=== PATIENT | female | born 1985 | race Caucasian/White ===

== ENCOUNTER → 2018-02-24 | Outpatient (CLI) | payer BC ==
--- NOTE | 2018-02-24 11:29 | MM ---
Reason for exam: screening (asymptomatic). Baseline mammogram. History: Family history of breast cancer in maternal aunt at age 50. Physical Findings: A clinical breast exam by your physician is recommended on an annual basis and results should be correlated with mammographic findings. MG Screening Mammo w CAD Bilateral CC and MLO view(s) were taken. There are scattered fibroglandular densities. There is no discrete abnormality. These results were verbally communicated with the patient and result sheet given to the patient on 02/24/18. ASSESSMENT: Negative, BI-RAD 1 RECOMMENDATION: Routine screening mammogram of both breasts at age 38.
== END | disposition home or self-care (01) ==
LOC: RADMAMWWP 09:34
PROVIDERS: ATTEND Obstetrics & Gynecology
DX: Z12.31 Encounter for screening mammogram for malignant neoplasm of breast (principal)
CPT/HCPCS: 77067

== ENCOUNTER 2019-07-18 19:46 | Observation (INO) | payer BC ==
[2019-07-18] MEDS ORDERED: SODIUM CHLORIDE 0.9% 1,000 ML IV STA (20:05)
[2019-07-18] MEDS ORDERED: SODIUM CHLORIDE 0.9% 500 ML 500 ML IV ONE (20:29)
--- NOTE | 2019-07-18 20:32 | ED ---
Fever HPI - General Source: patient Mode of arrival: ambulatory Limitations: no limitations <Megan Ryan - Last Filed: 07/19/19 01:23> <Dinh Townsend - Last Filed: 07/19/19 06:04> - General Chief Complaint: Fever Stated Complaint: post op-fever Time Seen by Provider: 07/18/19 19:55 - History of Present Illness Initial Comments: 34-year-old female patient who recently underwent rectal and ovarian surgery at the [facility] on 07/08/2019 presents to the emergency department today for evaluation of abdominal pain and fever. Patient states the fever was as high as 102.5F at home. Patient states she is having left pelvic pain. She denies any abnormal discharge from her vagina or rectum. States that she did have a normal bowel movement yesterday but no bowel movement today. Denies nausea or vomiting. Patient denies any recent rash, shortness breath, chest pain, back pain, numbness, tingling, dizziness, weakness, hematuria, dysuria, urinary urgency, urinary frequency, headache, visual changes, or any other complaints. (Megan Ryan) - Related Data Allergies Allergy/AdvReac Type Severity Reaction Status Date / Time No Known Allergies Allergy Verified 07/18/19 19:51 Review of Systems ROS Other: All systems not noted in ROS Statement are negative. <Megan Ryan - Last Filed: 07/19/19 01:23> ROS Other: All systems not noted in ROS Statement are negative. <Dinh Townsend - Last Filed: 07/19/19 06:04> ROS Statement: Those systems with pertinent positive or pertinent negative responses have been documented in the HPI. Past Medical History Past Medical History: Coronary Artery Disease (CAD) Additional Past Medical History / Comment(s): endometeriosis History of Any Multi-Drug Resistant Organisms: None Reported Past Surgical History: Hysterectomy Additional Past Surgical History / Comment(s): rectal prolapse surgery, Past Psychological History: No Psychological Hx Reported Smoking Status: Never smoker Past Alcohol Use History: Occasional Past Drug Use History: None Reported <Megan Ryan - Last Filed: 07/19/19 01:23> General Exam Limitations: no limitations General appearance: alert, in no apparent distress, other (This is a well-de veloped, well-nourished adult female patient in no acute distress. Vital signs upon presentation are temperature 99.7F, pulse 140, respirations 20, blood pressure 110/70, pulse ox 99% on room air.) Eye exam: Present: normal appearance, PERRL, EOMI. Absent: scleral icterus, conjunctival injection, periorbital swelling ENT exam: Present: normal exam, normal oropharynx, mucous membranes moist Respiratory exam: Present: normal lung sounds bilaterally. Absent: respiratory distress, wheezes, rales, rhonchi, stridor Cardiovascular Exam: Present: regular rate, normal rhythm, normal heart sounds. Absent: systolic murmur, diastolic murmur, rubs, gallop, clicks GI/Abdominal exam: Present: soft, tenderness (Left lower quadrant tenderness), normal bowel sounds, other (There is a horizontal incision over the pelvis which is well approximated, with no erythema or drainage.). Absent: distended, guarding, rebound, rigid Back exam: Present: normal inspection. Absent: CVA tenderness (R), CVA tenderness (L) Neurological exam: Present: alert, oriented X3, CN II-XII intact Psychiatric exam: Present: normal affect, normal mood Skin exam: Present: warm, dry, intact, normal color. Absent: rash <Megan Ryan - Last Filed: 07/19/19 01:23> Course <Dinh Townsend - Last Filed: 07/19/19 06:04> Vital Signs 07/18/19 07/18/19 07/18/19 19:47 20:42 22:39 Temperature 99.7 F H 99.9 F H Pulse Rate 140 H 105 H 107 H Respiratory 20 18 Rate Blood Pressure 110/70 142/82 O2 Sat by Pulse 99 100 99 Oximetry 07/19/19 07/19/19 07/19/19 00:24 01:00 02:36 Temperature 101.4 F H 101.5 F H 100.7 F H Pulse Rate 115 H 118 H 104 H Respiratory 18 16 19 Rate Blood Pressure 134/84 137/82 122/73 O2 Sat by Pulse 98 98 98 Oximetry - Reevaluation(s) Reevaluation #1: 07/19/19 06:03 After the patient's care had been discussed with our surgeon and the patient had admission orders written, pending the transfer to [facility], the patient's surgeon did finally return a call. She stated that the transfer was going to be held pending evaluation by our surgeon here, and if it was felt by him that the patient was requiring a drainage they would then process the transfer. (Dinh Townsend) Medical Decision Making - Lab Data Result diagrams: 07/18/19 20:33 07/18/19 20:33 - Radiology Data Radiology results: report reviewed, image reviewed <Megan Ryan - Last Filed: 07/19/19 01:23> - Lab Data Result diagrams: 07/18/19 20:33 07/18/19 20:33 <Dinh Townsend - Last Filed: 07/19/19 06:04> - Medical Decision Making 34 year-old female patient presents to emergency department today for evaluation of fever and left lower quadrant abdominal pain. Patient underwent surgical procedure at [facility] on 07/08/2019 for a repair of rectal prolapse as well as removal of right ovarian cyst, bilateral salpingectomy, and release of adhesions with Dr. Mcdonald (Colorectal Surgery) and Dr. Velarde (TRAFFIC II MANAGER). Patient developed fever early this morning and has been having pain to the left pelvic region for the last couple of days. Temperature has been as high as 102.5F. Labs reviewed and did reveal elevated white blood cell count at 23.5. Patient also had transaminitis. No evidence for significant urinary tract infection. Lactic acid negative. CT the abdomen and pelvis was obtained and did show abdominal wall thickening and fluid collection which could be hematoma versus seroma versus abscess. Patient was started on IV antibiotics. Transfer was initiated to [facility] however they do not have beds available at this time. Patient will be admitted for IV antibiotics, evaluation by a general surgery Dr. Grace and possible transfer to [facility] per his recommendation. I did discuss results, findings, and plan with the patient and her family. They are agreeable. (Megan Ryan) I saw this patient in conjunction with the physician assistant food service director. I performed independent history and physical exam. Agree with case management. (Dinh Townsend) - Lab Data Lab Results 07/18/19 07/18/19 07/18/19 Range/Units 20:33 20:33 20:33 WBC 23.7 H (3.8-10.6) k/uL RBC 3.76 L (3.80-5.40) m/uL Hgb 10.9 L (11.4-16.0) gm/dL Hct 33.8 L (34.0-46.0) % MCV 89.9 (80.0-100.0) fL MCH 29.0 (25.0-35.0) pg MCHC 32.2 (31.0-37.0) g/dL RDW 13.1 (11.5-15.5) % Plt Count 829 H (150-450) k/uL Neutrophils % 86 % Lymphocytes % 8 % Monocytes % 4 % Eosinophils % 1 % Basophils % 1 % Neutrophils # 20.3 H (1.3-7.7) k/uL Lymphocytes # 1.9 (1.0-4.8) k/uL Monocytes # 0.9 (0-1.0) k/uL Eosinophils # 0.2 (0-0.7) k/uL Basophils # 0.2 (0-0.2) k/uL Hypochromasia Slight Sodium 137 (137-145) mmol/L Potassium 4.8 (3.5-5.1) mmol/L Chloride 104 (98-107) mmol/L Carbon Dioxide 23 (22-30) mmol/L Anion Gap 10 mmol/L BUN 17 (7-17) mg/dL Creatinine 0.57 (0.52-1.04) mg/dL Est GFR (CKD-EPI)AfAm >90 (>60 ml/min/1.73 sqM) Est GFR (CKD-EPI)NonAf >90 (>60 ml/min/1.73 sqM) Glucose 116 H (74-99) mg/dL Plasma Lactic Acid Charles 0.9 (0.7-2.0) mmol/L Calcium 9.6 (8.4-10.2) mg/dL Total Bilirubin 1.0 (0.2-1.3) mg/dL AST 160 H (14-36) U/L ALT 105 H (9-52) U/L Alkaline Phosphatase 143 H (38-126) U/L Total Protein 7.5 (6.3-8.2) g/dL Albumin 4.2 (3.5-5.0) g/dL Urine Color Urine Appearance (Clear) Urine pH (5.0-8.0) Ur Specific [place] (1.001-1.035) Urine Protein (Negative) Urine Glucose (UA) (Negative) Urine Ketones (Negative) Urine Blood (Negative) Urine Nitrite (Negative) Urine Bilirubin (Negative) Urine Urobilinogen (<2.0) mg/dL Ur Leukocyte Esterase (Negative) Urine RBC (0-5) /hpf Urine WBC (0-5) /hpf Ur Squamous Epith Cells (0-4) /hpf Urine Bacteria (None) /hpf Urine Mucus (None) /hpf 07/18/19 Range/Units 20:42 WBC (3.8-10.6) k/uL RBC (3.80-5.40) m/uL Hgb (11.4-16.0) gm/dL Hct (34.0-46.0) % MCV (80.0-100.0) fL MCH (25.0-35.0) pg MCHC (31.0-37.0) g/dL RDW (11.5-15.5) % Plt Count (150-450) k/uL Neutrophils % % Lymphocytes % % Monocytes % % Eosinophils % % Basophils % % Neutrophils # (1.3-7.7) k/uL Lymphocytes # (1.0-4.8) k/uL Monocytes # (0-1.0) k/uL Eosinophils # (0-0.7) k/uL Basophils # (0-0.2) k/uL Hypochromasia Sodium (137-145) mmol/L Potassium (3.5-5.1) mmol/L Chloride (98-107) mmol/L Carbon Dioxide (22-30) mmol/L Anion Gap mmol/L BUN (7-17) mg/dL Creatinine (0.52-1.04) mg/dL Est GFR (CKD-EPI)AfAm (>60 ml/min/1.73 sqM) Est GFR (CKD-EPI)NonAf (>60 ml/min/1.73 sqM) Glucose (74-99) mg/dL Plasma Lactic Acid Charles (0.7-2.0) mmol/L Calcium (8.4-10.2) mg/dL Total Bilirubin (0.2-1.3) mg/dL AST (14-36) U/L ALT (9-52) U/L Alkaline Phosphatase (38-126) U/L Total Protein (6.3-8.2) g/dL Albumin (3.5-5.0) g/dL Urine Color Yellow Urine Appearance Cloudy H (Clear) Urine pH 6.5 (5.0-8.0) Ur Specific [place] 1.038 H (1.001-1.035) Urine Protein 2+ H (Negative) Urine Glucose (UA) Trace H (Negative) Urine Ketones Trace H (Negative) Urine Blood Trace H (Negative) Urine Nitrite Negative (Negative) Urine Bilirubin Negative (Negative) Urine Urobilinogen 3.0 (<2.0) mg/dL Ur Leukocyte Esterase Small H (Negative) Urine RBC 6 H (0-5) /hpf Urine WBC 16 H (0-5) /hpf Ur Squamous Epith Cells 8 H (0-4) /hpf Urine Bacteria Moderate H (None) /hpf Urine Mucus Many H (None) /hpf - Radiology Data CT abdomen and pelvis is obtained. Report reviewed in its entirety. Impression by Dr. Martinez just or anterior abdominal surgery with significant thickening within the anterior abdominal wall thickening could relate to multicentric hematoma and seroma. Abscesses not entirely excluded. Mild free fluid in the pelvis. This could be chronic hematoma. No evidence of pneumoperitoneum. Anterior abdominal wall thickening up to 3.3 cm. (Megan Ryan) Disposition Decision to Admit Reason: Admit from EC Decision Date: 07/19/19 Decision Time: 01:35 <Megan Ryan - Last Filed: 07/19/19 01:23> <Dinh Townsend - Last Filed: 07/19/19 06:04> Clinical Impression: Post op infection, SIRS (systemic inflammatory response syndrome) Disposition: ADMITTED IP TO THIS HOSP Condition: Serious
[2019-07-18 20:54] LABS: Basophils # (A) 0.2 k/uL (0-0.2); Basophils % (A) 1 %; Eosinophils # (A) 0.2 k/uL (0-0.7); Eosinophils % (A) 1 %; HCT 33.8 % (34.0-46.0); HGB 10.9 gm/dL (11.4-16.0); Hypochromasia Slight; Lymphocytes # (A) 1.9 k/uL (1.0-4.8); Lymphocytes % (A) 8 %; MCHC 32.2 g/dL (31.0-37.0); MCV 89.9 fL (80.0-100.0); Monocytes # (A) 0.9 k/uL (0-1.0); Monocytes % (A) 4 %; Neutrophils # (A) 20.3 k/uL (1.3-7.7); Neutrophils % (A) 86 %; Platelet Count 829 k/uL (150-450); RBC 3.76 m/uL (3.80-5.40); RDW 13.1 % (11.5-15.5); WBC 23.7 k/uL (3.8-10.6)
[2019-07-18 21:00] LABS: Appearance,Urine Cloudy (Clear); Bacteria,Urine Moderate /hpf; Bilirubin,Urine Negative (Negative); Blood,Urine Trace (Negative); Color,Urine Yellow; Glucose,Urine (UA) Trace (Negative); Ketones,Urine Trace (Negative); Leukocyte Esterase,Urine Small (Negative); Mucus,Urine Many /hpf; Nitrite,Urine Negative (Negative); PH, Urine 6.5 (5.0-8.0); Protein,Urine 2+ (Negative); RBC,Urine 6 /hpf (0-5); Specific Gravity,Urine 1.038 (1.001-1.035); Squamous Epithelial Cell,Urine 8 /hpf (0-4); WBC,Urine 16 /hpf (0-5)
[2019-07-18 21:03] LABS: ALT 105 U/L (9-52); AST 160 U/L (14-36); African American GFR (CKD) >90 (>60 ml/min/1.73 sqM); Albumin 4.2 g/dL (3.5-5.0); Alkaline Phosphatase 143 U/L (38-126); Anion Gap 10 mmol/L; Blood Urea Nitrogen 17 mg/dL (7-17); Calcium 9.6 mg/dL (8.4-10.2); Carbon Dioxide 23 mmol/L (22-30); Chloride 104 mmol/L (98-107); Glucose 116 mg/dL (74-99); Non-African American GFR(CKD) >90 (>60 ml/min/1.73 sqM); Potassium 4.8 mmol/L (3.5-5.1); Sodium 137 mmol/L (137-145); Total Protein 7.5 g/dL (6.3-8.2)
--- NOTE | 2019-07-18 21:16 | CT ---
EXAMINATION TYPE: CT abdomen pelvis w con DATE OF EXAM: 07/18/2019 COMPARISON: None HISTORY: Fever, LT pelvic pain. Recent rectal prolapse, ovary sx. Hx hysterectomy. CT DLP: 884.9 mGycm Automated exposure control for dose reduction was used. TECHNIQUE: Helical acquisition of images was performed from the lung bases through the pelvis. CONTRAST: Performed without Oral Contrast and with IV Contrast, patient injected with 100 mL of Isovue 300. FINDINGS: Lung bases are clear. There is no pleural effusion. Heart is normal. Liver spleen stomach pancreas gallbladder appear normal. Bile ducts are not dilated. There is no adrenal mass. Kidneys show satisfactory contrast opacification. There is no hydronephrosi s. There is no retroperitoneal adenopathy. Ureters are not dilated. There is normal contrast excretio n. There is mild free fluid in the pelvis. Bladder distends smoothly. There is hysterectomy. There is blanco rgery at the rectosigmoid colon. There is significant thickening of the lower anterior abdominal wall with mixed attenuation. There ar e a few air bubbles. There is incision site in the lower anterior abdomen. There is no evidence of free air. There is L5 spondylolysis with first-degree L5-S1 spondylolisthesis. Disc spaces are fairly normal. T here is no compression fracture. Bony pelvis is intact. Appendix appears normal. There is no sign of pneumoperitoneum. There is no mesenteric edema. There is no evidence of a bowel obstruction. There is no evidence of rectal prolapse. IMPRESSION: Lower anterior abdomen surgery with significant thickening within the anterior abdominal wall thicken ing could relate to multicentric hematoma and seroma. Abscess not entirely excluded. Mild free fluid in the pelvis. This could be chronic hematoma. No evidence of pneumoperitoneum. Anterior abdominal wall thickening up to 3.3 cm.
[2019-07-18] MEDS ORDERED: AMPICILLIN-SULBACTAM 3 GM in SODIUM CHLORIDE 0.9% 100 ML IVPB STA (21:59)
[2019-07-19] MEDS ORDERED: IBUPROFEN 600 MG TAB PO STA (00:28)
[2019-07-19] MEDS ORDERED: ACETAMINOPHEN TAB 500 MG TAB PO STA (00:28)
[2019-07-19] MEDS ORDERED: HYDROmorphone 0.5 MG/0.5 ML SYRINGE IVP PRN (01:20)
[2019-07-19] MEDS ORDERED: NALOXONE 0.4 MG/ML 1 ML VIAL IV PRN (01:20)
[2019-07-19 03:14] VITALS: BMI 29.5
[2019-07-19] MEDS: AMPICILLIN-SULBACTAM 3 GM in SODIUM CHLORIDE 0.9% 100 ML IVPB SCH ×4 (05:45→23:00)
[2019-07-19] MEDS: SODIUM CHLORIDE 0.9% 1,000 ML IV SCH ×2 (05:46→15:43)
[2019-07-19 10:59] LABS: Basophils % (A) 0 %; Eosinophils # (A) 0.2 k/uL (0-0.7); Eosinophils % (A) 1 %; HCT 30.3 % (34.0-46.0); HGB 9.9 gm/dL (11.4-16.0); Hypochromasia Moderate; Lymphocytes # (A) 1.1 k/uL (1.0-4.8); Lymphocytes % (A) 6 %; MCH 29.6 pg (25.0-35.0); MCHC 32.7 g/dL (31.0-37.0); MCV 90.4 fL (80.0-100.0); Mean Platelet Volume 5.7; Monocytes # (A) 0.9 k/uL (0-1.0); Monocytes % (A) 4 %; Neutrophils # (A) 17.7 k/uL (1.3-7.7); Neutrophils % (A) 88 %; Platelet Count 753 k/uL (150-450); RBC 3.35 m/uL (3.80-5.40); RDW 13.2 % (11.5-15.5); WBC 20.2 k/uL (3.8-10.6)
[2019-07-19] MEDS: ONDANSETRON 4 MG/2 ML VIAL IVP PRN (11:22)
[2019-07-19] MEDS: ACETAMINOPHEN TAB 325 MG TAB PO PRN ×2 (11:23→18:11)
[2019-07-19] MEDS ORDERED: HYDROmorphone 1 MG/ML 1 ML SYRINGE IVP PRN (11:33)
[2019-07-19] MEDS: KETOROLAC 30 MG/ML 1 ML VIAL IVP PRN ×3 (12:02→23:40)
[2019-07-19] MEDS ORDERED: VANCOMYCIN IV PER PHARMACY 1 EACH MISC MISCELLANE PRN (14:34)
--- NOTE | 2019-07-19 14:49 | P.HPIM ---
History of Present Illness 34-year-old very pleasant female came in with complains of severe abdominal pain the left lower quadrant area sharp in nature nonradiating patient had high-grade fever of 102.5. Patient had a laparotomy recently and came in clinic earlier this month. Patient appears to have had hysterectomy and bilateral salpingo- oophorectomy, had multiple bowel surgeries in the past as well. Patient was told that she has connective tissue disorder all the type of connective tissue disease of that was not diagnosed yet. Patient on multiple opiates and concern that she is on too many of those medications. Patient is presently on Toradol, Dilaudid, oxycodone, gabapentin for pain. Patient had a CAT scan of the abdomen which showed a multiloculated hematoma which appears to be infected which appears to be in the abdominal muscle wall. Patient is Zosyn also start her on vancomycin Review of Systems REVIEW OF SYSTEMS: CONSTITUTIONAL: No fever, no malaise, no fatigue. HEENT: No recent visual problems or hearing problems. Denied any sore throat. CARDIOVASCULAR: No chest pain, orthopnea, PND, no palpitations, no syncope. PULMONARY: No shortness of breath, no cough, no hemoptysis. GASTROINTESTINAL: No diarrhea, no nausea, no vomiting. NEUROLOGICAL: No headaches, no weakness, no numbness. HEMATOLOGICAL: Denies any bleeding or petechiae. GENITOURINARY: Denies any burning micturition, frequency, or urgency. MUSCULOSKELETAL/RHEUMATOLOGICAL: Denies any joint pain, swelling, or any muscle pain. ENDOCRINE: Denies any polyuria or polydipsia. The rest of the 14-point review of systems is negative. Past Medical History Past Medical History: Coronary Artery Disease (CAD) Additional Past Medical History / Comment(s): endometeriosis History of Any Multi-Drug Resistant Organisms: None Reported Past Surgical History: Hysterectomy Additional Past Surgical History / Comment(s): rectal prolapse surgery, Past Psychological History: No Psychological Hx Reported Smoking Status: Former smoker Past Alcohol Use History: Occasional Past Drug Use History: None Reported - Past Family History Father Family Medical History: Musculoskeletal Disorder Additional Family Medical History / Comment(s): MS Medications and Allergies Home Medications Medication Instructions Recorded Confirmed Type Acetaminophen [Tylenol Extra 1,000 mg PO Q6H PRN 07/19/19 07/19/19 History Strength] Ibuprofen [Motrin Ib] 400 mg PO Q6H PRN 07/19/19 07/19/19 History oxyCODONE HCL [OxyIR] 5 mg PO Q6H PRN 07/19/19 07/19/19 History traMADol HCL 50 mg PO Q4H PRN 07/19/19 07/19/19 History Allergies Allergy/AdvReac Type Severity Reaction Status Date / Time No Known Allergies Allergy Verified 07/19/19 07:44 Physical Exam Vitals: Vital Signs Temp Pulse Pulse Resp BP BP Pulse Ox 07/19/19 11:28 102 F H 07/19/19 07:00 98.2 F 84 12 99/65 100 07/19/19 03:08 98.6 F 103 H 14 122/74 97 07/19/19 02:36 100.7 F H 104 H 19 122/73 98 07/19/19 01:00 101.5 F H 118 H 16 137/82 98 07/19/19 00:24 101.4 F H 115 H 18 134/84 98 07/18/19 22:39 99.9 F H 107 H 18 142/82 99 07/18/19 20:42 105 H 100 07/18/19 19:47 99.7 F H 140 H 20 110/70 99 Intake and Output 07/18/19 07/19/19 07/19/19 22:59 06:59 14:59 Intake Total 225 Balance 225 Intake: Intake, IV Titration 225 Amount Sodium Chloride 0.9% 1, 225 000 ml @ 75 mls/hr IV . [id number] [facility] Rx#:[id number] Other: Voiding Method Toilet Weight 77.111 kg PHYSICAL EXAMINATION: GENERAL: The patient is alert and oriented x3, not in any acute distress. Well developed, well nourished. HEENT: Pupils are round and equally reacting to light. EOMI. No scleral icterus. No conjunctival pallor. Normocephalic, atraumatic. No pharyngeal erythema. No thyromegaly. CARDIOVASCULAR: S1 and S2 present. No murmurs, rubs, or gallops. PULMONARY: Chest is clear to auscultation, no wheezing or crackles. ABDOMEN: Soft, severe tenderness in the left lower quadrant area and no rebound or rigidity MUSCULOSKELETAL: No joint swelling or deformity. EXTREMITIES: No cyanosis, clubbing, or pedal edema. NEUROLOGICAL: Gross neurological examination did not reveal any focal deficits. SKIN: No rashes. Results CBC & Chem 7: 07/19/19 10:45 07/18/19 20:33 Labs: Abnormal Lab Results - Last 24 Hours (Table) 07/18/19 07/18/19 07/18/19 Range/Units 20:33 20:33 20:42 WBC 23.7 H (3.8-10.6) k/uL RBC 3.76 L (3.80-5.40) m/uL Hgb 10.9 L (11.4-16.0) gm/dL Hct 33.8 L (34.0-46.0) % Plt Count 829 H (150-450) k/uL Neutrophils # 20.3 H (1.3-7.7) k/uL Glucose 116 H (74-99) mg/dL AST 160 H (14-36) U/L ALT 105 H (9-52) U/L Alkaline Phosphatase 143 H (38-126) U/L Urine Appearance Cloudy H (Clear) Ur Specific [place] 1.038 H (1.001-1.035) Urine Protein 2+ H (Negative) Urine Glucose (UA) Trace H (Negative) Urine Ketones Trace H (Negative) Urine Blood Trace H (Negative) Ur Leukocyte Esterase Small H (Negative) Urine RBC 6 H (0-5) /hpf Urine WBC 16 H (0-5) /hpf Ur Squamous Epith Cells 8 H (0-4) /hpf Urine Bacteria Moderate H (None) /hpf Urine Mucus Many H (None) /hpf 07/19/19 Range/Units 10:45 WBC 20.2 H (3.8-10.6) k/uL RBC 3.35 L (3.80-5.40) m/uL Hgb 9.9 L (11.4-16.0) gm/dL Hct 30.3 L (34.0-46.0) % Plt Count 753 H (150-450) k/uL Neutrophils # 17.7 H (1.3-7.7) k/uL Glucose (74-99) mg/dL AST (14-36) U/L ALT (9-52) U/L Alkaline Phosphatase (38-126) U/L Urine Appearance (Clear) Ur Specific [place] (1.001-1.035) Urine Protein (Negative) Urine Glucose (UA) (Negative) Urine Ketones (Negative) Urine Blood (Negative) Ur Leukocyte Esterase (Negative) Urine RBC (0-5) /hpf Urine WBC (0-5) /hpf Ur Squamous Epith Cells (0-4) /hpf Urine Bacteria (None) /hpf Urine Mucus (None) /hpf Thrombosis Risk Factor Assmnt - Choose All That Apply Any of the Below Risk Factors Present?: Yes Each Factor Represents 1 point: History of prior major surgery (<1month), Obesity (BMI >25) Other Risk Factors: No Other congenital or acquired thrombophilia - If yes, enter type in comment: No Thrombosis Risk Factor Assessment Total Risk Factor Score: 2 Thrombosis Risk Factor Assessment Level: Low Risk Assessment and Plan Plan: -Sepsis: Probably secondary to infected hematoma and abscess of the abdominal wall. February surgery evaluated the patient is recommending transfer to [facility] because of her previous multiple complicated surgeries. Patient is Zosyn will add vancomycin. Discussed with the general surgeon at [facility] and awaiting lites for her transfer. Pain management as mentioned above -Tachycardia: Secondary to sepsis -Connective-tissue disorder
[2019-07-19] MEDS ORDERED: VANCOMYCIN 1,500 MG in SODIUM CHLORIDE 0.9% 250 ML IVPB ONE (15:00)
--- NOTE | 2019-07-19 15:50 | P.GSCN ---
History of Present Illness Consult date: 07/19/19 Reason for Consult: Postop infection Requesting physician: Megan Ryan History of present illness: CHIEF COMPLAINT: Pain HISTORY OF PRESENT ILLNESS: 34-year-old female who recently underwent repair of rectal prolapse, removal of right ovarian cyst, bilateral salpingectomy and lysis of adhesions on 07/08/2019 at [facility]. Patient presents to the ER with a chief complaint of fevers for the last 24 hours and increased abdominal pain. Patient reports her follow up is not until the middle of August at the [facility]. PAST MEDICAL HISTORY: See list. PAST SURGICAL HISTORY: See list. SOCIAL HISTORY: No illicit drug use. REVIEW OF SYSTEMS: CONSTITUTIONAL: Reports fevers. HEENT: Denies blurred vision, vision changes, or eye pain. Denies hemoptysis CARDIOVASCULAR: Denies chest pain or pressure. RESPIRATORY: No shortness of breath. GASTROINTESTINAL: Refer to [facility] for pertinent findings HEMATOLOGIC: Denies bleeding disorders. GENITOURINARY: Denies any blood in urine. SKIN: Denies pruitis. Denies rash. PHYSICAL EXAM: VITAL SIGNS: Reviewed. GENERAL: Well-developed in no acute distress. HEENT: No sclera icterus. Extraocular movements grossly intact. Moist buccal mucosa. Head is atraumatic, normocephalic. ABDOMEN: Soft. Nondistended. Horizontal incision to lower aspect of the abdomen without drainage, erythema, or signs of infection. Patient refusing palpation of the abdomen at this time due to pain. NEUROLOGIC: Alert and oriented. Cranial nerves II through XII grossly intact. LABORATORY DATA: WBC on admission 23.7. Hemoglobin 10.9. Platelet count 829. Lactic acid 0.9. IMAGING: CT abdomen and pelvis: Lower anterior abdominal surgery with significant thickening within the anterior abdominal wall could relate to multicentric hemat shoaib and seroma. Abscess not entirely excluded. Mild free fluid in the pelvis. No evidence of pneumoperitoneum. Anterior abdominal wall thickening up to 3.3 cm. ASSESSMENT: 1. History of recent repair of rectal prolapse, removal of right ovarian cyst, bilateral salpingectomy and lysis of adhesions on 07/08/2019 at [facility] 2. Postoperative pain and fever 3. Abdominal wall seroma vs hematoma vs abscess, suspect abscess 4. Leukocytosis PLAN: General surgery recommends transfer to [facility] due to recent surgical intervention, complexity of patient's case, and suspected abdominal abscess. Discussed with patient who is agreeable to transfer. In the meantime, continue IV antibiotics and monitor WBC. Nurse practitioner note has been reviewed by physician. Signing provider agrees with the documented findings, assessment, and plan of care. Past Medical History Past Medical History: Coronary Artery Disease (CAD) Additional Past Medical History / Comment(s): endometeriosis History of Any Multi-Drug Resistant Organisms: None Reported Past Surgical History: Hysterectomy Additional Past Surgical History / Comment(s): rectal prolapse surgery, Past Psychological History: No Psychological Hx Reported Smoking Status: Former smoker Past Alcohol Use History: Occasional Past Drug Use History: None Reported - Past Family History Father Family Medical History: Musculoskeletal Disorder Additional Family Medical History / Comment(s): MS Medications and Allergies Home Medications Medication Instructions Recorded Confirmed Type Acetaminophen [Tylenol Extra 1,000 mg PO Q6H PRN 07/19/19 07/19/19 History Strength] Ibuprofen [Motrin Ib] 400 mg PO Q6H PRN 07/19/19 07/19/19 History oxyCODONE HCL [OxyIR] 5 mg PO Q6H PRN 07/19/19 07/19/19 History traMADol HCL 50 mg PO Q4H PRN 07/19/19 07/19/19 History Allergies Allergy/AdvReac Type Severity Reaction Status Date / Time No Known Allergies Allergy Verified 07/19/19 07:44 Surgical - Exam Vital Signs Temp Pulse Resp BP Pulse Ox 99.7 F H 140 H 20 110/70 99 07/18/19 19:47 07/18/19 19:47 07/18/19 19:47 07/18/19 19:47 07/18/19 19:47 Results - Labs 07/19/19 10:45 07/18/19 20:33 Abnormal Lab Results - Last 24 Hours (Table) 07/18/19 07/18/19 07/18/19 Range/Units 20:33 20:33 20:42 WBC 23.7 H (3.8-10.6) k/uL RBC 3.76 L (3.80-5.40) m/uL Hgb 10.9 L (11.4-16.0) gm/dL Hct 33.8 L (34.0-46.0) % Plt Count 829 H (150-450) k/uL Neutrophils # 20.3 H (1.3-7.7) k/uL Glucose 116 H (74-99) mg/dL AST 160 H (14-36) U/L ALT 105 H (9-52) U/L Alkaline Phosphatase 143 H (38-126) U/L Urine Appearance Cloudy H (Clear) Ur Specific [place] 1.038 H (1.001-1.035) Urine Protein 2+ H (Negative) Urine Glucose (UA) Trace H (Negative) Urine Ketones Trace H (Negative) Urine Blood Trace H (Negative) Ur Leukocyte Esterase Small H (Negative) Urine RBC 6 H (0-5) /hpf Urine WBC 16 H (0-5) /hpf Ur Squamous Epith Cells 8 H (0-4) /hpf Urine Bacteria Moderate H (None) /hpf Urine Mucus Many H (None) /hpf 07/19/19 Range/Units 10:45 WBC 20.2 H (3.8-10.6) k/uL RBC 3.35 L (3.80-5.40) m/uL Hgb 9.9 L (11.4-16.0) gm/dL Hct 30.3 L (34.0-46.0) % Plt Count 753 H (150-450) k/uL Neutrophils # 17.7 H (1.3-7.7) k/uL Glucose (74-99) mg/dL AST (14-36) U/L ALT (9-52) U/L Alkaline Phosphatase (38-126) U/L Urine Appearance (Clear) Ur Specific [place] (1.001-1.035) Urine Protein (Negative) Urine Glucose (UA) (Negative) Urine Ketones (Negative) Urine Blood (Negative) Ur Leukocyte Esterase (Negative) Urine RBC (0-5) /hpf Urine WBC (0-5) /hpf Ur Squamous Epith Cells (0-4) /hpf Urine Bacteria (None) /hpf Urine Mucus (None) /hpf Diabetes panel 07/18/19 Range/Units 20:33 Sodium 137 (137-145) mmol/L Potassium 4.8 (3.5-5.1) mmol/L Chloride 104 (98-107) mmol/L Carbon Dioxide 23 (22-30) mmol/L BUN 17 (7-17) mg/dL Creatinine 0.57 (0.52-1.04) mg/dL Glucose 116 H (74-99) mg/dL Calcium 9.6 (8.4-10.2) mg/dL AST 160 H (14-36) U/L ALT 105 H (9-52) U/L Alkaline Phosphatase 143 H (38-126) U/L Total Protein 7.5 (6.3-8.2) g/dL Albumin 4.2 (3.5-5.0) g/dL Calcium panel 07/18/19 Range/Units 20:33 Calcium 9.6 (8.4-10.2) mg/dL Albumin 4.2 (3.5-5.0) g/dL Pituitary panel 07/18/19 Range/Units 20:33 Sodium 137 (137-145) mmol/L Potassium 4.8 (3.5-5.1) mmol/L Chloride 104 (98-107) mmol/L Carbon Dioxide 23 (22-30) mmol/L BUN 17 (7-17) mg/dL Creatinine 0.57 (0.52-1.04) mg/dL Glucose 116 H (74-99) mg/dL Calcium 9.6 (8.4-10.2) mg/dL Adrenal panel 07/18/19 Range/Units 20:33 Sodium 137 (137-145) mmol/L Potassium 4.8 (3.5-5.1) mmol/L Chloride 104 (98-107) mmol/L Carbon Dioxide 23 (22-30) mmol/L BUN 17 (7-17) mg/dL Creatinine 0.57 (0.52-1.04) mg/dL Glucose 116 H (74-99) mg/dL Calcium 9.6 (8.4-10.2) mg/dL Total Bilirubin 1.0 (0.2-1.3) mg/dL AST 160 H (14-36) U/L ALT 105 H (9-52) U/L Alkaline Phosphatase 143 H (38-126) U/L Total Protein 7.5 (6.3-8.2) g/dL Albumin 4.2 (3.5-5.0) g/dL
[2019-07-19 21:42] VITALS: BP 120/72; PULSE 116; RESP 22
[2019-07-20] MEDS ORDERED: VANCOMYCIN 1,250 MG in SODIUM CHLORIDE 0.9% 250 ML IVPB SCH ×2
[2019-07-20] MEDS: ONDANSETRON 4 MG/2 ML VIAL IVP PRN (00:28)
[2019-07-20 00:42] VITALS: TEMP 100.7
== END 2019-07-20 00:42 ==
LOC: EC 19:46 → 4SSUR 07-19 02:25
PROVIDERS: ADMIT Hospitalist; ATTEND Hospitalist
DX: T81.40XA Infection following a procedure, unspecified, initial encounter (principal); T81.44XA Sepsis following a procedure, initial encounter; M35.9 Systemic involvement of connective tissue, unspecified; I25.10 Atherosclerotic heart disease of native coronary artery without angina pectoris; R74.0 Nonspecific elevation of levels of transaminase and lactic acid dehydrogenase [LDH]; E66.9 Obesity, unspecified; Z68.30 Body mass index [BMI] 30.0-30.9, adult; Z79.1 Long term (current) use of non-steroidal anti-inflammatories (NSAID); Z79.899 Other long term (current) drug therapy; Z79.891 Long term (current) use of opiate analgesic; Z87.891 Personal history of nicotine dependence; Z90.710 Acquired absence of both cervix and uterus; Z82.69 Family history of other diseases of the musculoskeletal system and connective tissue
CPT/HCPCS: 96376 ×2; 96366; 96375; 96361; 96365; 99284; 36415; 80053; 83605; 85025 ×2; 81001; 87040; 74177; G0378 ×2; J3370; J2405 ×2; J1885; J0295 ×2; Q9967

== ENCOUNTER 2019-08-09 19:20 | Emergency (ER) | payer BC ==
[2019-08-09] MEDS ORDERED: SODIUM CHLORIDE 0.9% 1,000 ML IV STA (20:01)
[2019-08-09] MEDS ORDERED: IOPAMIDOL CONTRAST (ORAL USE) VIAL PO PRN (20:01)
[2019-08-09] MEDS ORDERED: ONDANSETRON 4 MG/2 ML VIAL IVP STA (20:01)
[2019-08-09] MEDS ORDERED: SODIUM CHLORIDE 0.9% 500 ML 500 ML IV STA (20:01)
[2019-08-09] MEDS ORDERED: HYDROmorphone 1 MG/ML 1 ML SYRINGE IVP STA ×2 (20:01→21:47)
--- NOTE | 2019-08-09 20:39 | ED ---
Abdominal Pain HPI - General Chief Complaint: Abdominal Pain Stated Complaint: Urogenital-post op, fever Time Seen by Provider: 08/09/19 19:45 Source: patient, RN notes reviewed Mode of arrival: ambulatory Limitations: no limitations - History of Present Illness Initial Comments: This is a 34-year-old female history of multiple abdominal surgeries including initially surgery for repair for rectal prolapse who states her last surgery was done in the middle of July at [facility]. She presents tonight because of a low-grade temperature and pain in the right side of her abdomen. She states feels identical to the situation to her recent surgery was on the left side. She denies any overt nausea vomiting any chills or sweats just the low-grade fever she states. She's had some diarrhea this morning. Patient states at rest the pain 7/10 severity when she tries to move his 10/10. No other modifying factors time she just had her wound VAC change yesterday. MD Complaint: abdominal pain, other - Related Data Previous Rx's Medication Instructions Recorded Fluconazole [Diflucan] 150 mg PO DAILY #3 tab 08/09/19 Hydrocodone/Acetaminophen [[place] 1 each PO Q6HR PRN #20 tab 08/09/19 5-325] Sulfamethox-Tmp 800-160Mg [Bactrim 2 each PO Q12HR #12 tab 08/09/19 DS 800-160 mg] Allergies Allergy/AdvReac Type Severity Reaction Status Date / Time No Known Allergies Allergy Verified 08/09/19 20:52 Review of Systems ROS Statement: Those systems with pertinent positive or pertinent negative responses have been documented in the HPI. ROS Other: All systems not noted in ROS Statement are negative. Past Medical History Past Medical History: Coronary Artery Disease (CAD) Additional Past Medical History / Comment(s): endometeriosis History of Any Multi-Drug Resistant Organisms: None Reported Past Surgical History: Hysterectomy Additional Past Surgical History / Comment(s): rectal prolapse surgery, Past Psychological History: No Psychological Hx Reported Smoking Status: Former smoker Past Alcohol Use History: Occasional Past Drug Use History: None Reported - Past Family History Father Family Medical History: Musculoskeletal Disorder Additional Family Medical History / Comment(s): MS General Exam - General Exam Comments Initial Comments: This is a well-developed well-nourished awake alert oriented 3 female Limitations: no limitations General appearance: alert, anxious Head exam: Present: atraumatic, normocephalic, normal inspection Eye exam: Present: normal appearance, PERRL, EOMI. Absent: scleral icterus, conjunctival injection, periorbital swelling ENT exam: Present: normal exam, mucous membranes moist Neck exam: Present: normal inspection. Absent: tenderness, meningismus, lymphadenopathy Respiratory exam: Present: normal lung sounds bilaterally. Absent: respiratory distress, wheezes, rales, rhonchi, stridor Cardiovascular Exam: Present: normal rhythm, tachycardia, normal heart sounds. Absent: systolic murmur, diastolic murmur, rubs, gallop, clicks GI/Abdominal exam: Present: soft, tenderness (Some right lower quadrant area pain no overt guarding or rebound would be intact is in place in the suprapubic region. It appears be intact and functional), normal bowel sounds. Absent: distended, guarding, rebound, rigid Rectal exam: Present: deferred Extremities exam: Present: normal inspection, full ROM, normal capillary refill. Absent: tenderness, pedal edema, joint swelling, calf tenderness Back exam: Present: normal inspection Neurological exam: Present: alert, oriented X3, CN II-XII intact Psychiatric exam: Present: normal affect, normal mood Skin exam: Present: warm, dry, intact, normal color. Absent: rash Course Vital Signs 08/09/19 08/09/19 08/09/19 19:30 20:45 22:27 Temperature 100.2 F H Pulse Rate 119 H 64 91 Respiratory 20 16 16 Rate Blood Pressure 105/77 109/71 105/58 O2 Sat by Pulse 97 100 99 Oximetry - Reevaluation(s) Reevaluation #1: 08/09/19 23:34 Patient did require some IV pain medication. Medical Decision Making - Medical Decision Making I did have a long discussion with patient and her regarding the findings. I initiated contact Dr. Grace as well as Dr. Eden. They did recommend transfer to the [facility]. I did discuss with the patient she would prefer to drive herself which is believe is reasonable at this time. She did receive IV antibiotics and medication. I did caution her not to delay transport though she would like to contact her physician first. Patient will be given copies of the workup today including CAT scan and x-rays and labs. She also does request that we fax printable information to her physician at [facility] is been arranged by staff. She was invited back at any time if there is any question. Patient will be placed on the oral medication she was discharged from [facility] with at this time and the last several days if needed - Lab Data Result diagrams: 08/09/19 20:33 08/09/19 20:33 Lab Results 08/09/19 08/09/19 08/09/19 Range/Units 20:33 20:33 20:33 WBC 12.8 H (3.8-10.6) k/uL RBC 4.21 (3.80-5.40) m/uL Hgb 12.1 (11.4-16.0) gm/dL Hct 38.2 (34.0-46.0) % MCV 90.6 (80.0-100.0) fL MCH 28.8 (25.0-35.0) pg MCHC 31.8 (31.0-37.0) g/dL RDW 14.9 (11.5-15.5) % Plt Count 380 (150-450) k/uL Neutrophils % 77 % Lymphocytes % 16 % Monocytes % 4 % Eosinophils % 1 % Basophils % 1 % Neutrophils # 9.8 H (1.3-7.7) k/uL Lymphocytes # 2.1 (1.0-4.8) k/uL Monocytes # 0.6 (0-1.0) k/uL Eosinophils # 0.2 (0-0.7) k/uL Basophils # 0.1 (0-0.2) k/uL PT (9.0-12.0) sec INR (<1.2) APTT (22.0-30.0) sec Sodium 136 L (137-145) mmol/L Potassium 4.2 (3.5-5.1) mmol/L Chloride 102 (98-107) mmol/L Carbon Dioxide 26 (22-30) mmol/L Anion Gap 8 mmol/L BUN 8 (7-17) mg/dL Creatinine 0.56 (0.52-1.04) mg/dL Est GFR (CKD-EPI)AfAm >90 (>60 ml/min/1.73 sqM) Est GFR (CKD-EPI)NonAf >90 (>60 ml/min/1.73 sqM) Glucose 113 H (74-99) mg/dL Plasma Lactic Acid [place] 1.1 (0.7-2.0) mmol/L Calcium 9.7 (8.4-10.2) mg/dL Total Bilirubin 0.7 (0.2-1.3) mg/dL AST 19 (14-36) U/L ALT 13 (9-52) U/L Alkaline Phosphatase 91 (38-126) U/L Creatine Kinase 28 L (30-135) U/L Total Protein 7.2 (6.3-8.2) g/dL Albumin 4.2 (3.5-5.0) g/dL Amylase 73 (30-110) U/L Lipase 151 (23-300) U/L Urine Color Urine Appearance (Clear) Urine pH (5.0-8.0) Ur Specific [place] (1.001-1.035) Urine Protein (Negative) Urine Glucose (UA) (Negative) Urine Ketones (Negative) Urine Blood (Negative) Urine Nitrite (Negative) Urine Bilirubin (Negative) Urine Urobilinogen (<2.0) mg/dL Ur Leukocyte Esterase (Negative) Urine RBC (0-5) /hpf Urine WBC (0-5) /hpf Ur Squamous Epith Cells (0-4) /hpf Amorphous Sediment (None) /hpf Urine Bacteria (None) /hpf Urine Mucus (None) /hpf 08/09/19 08/09/19 Range/Units 20:33 22:00 WBC (3.8-10.6) k/uL RBC (3.80-5.40) m/uL Hgb (11.4-16.0) gm/dL Hct (34.0-46.0) % MCV (80.0-100.0) fL MCH (25.0-35.0) pg MCHC (31.0-37.0) g/dL RDW (11.5-15.5) % Plt Count (150-450) k/uL Neutrophils % % Lymphocytes % % Monocytes % % Eosinophils % % Basophils % % Neutrophils # (1.3-7.7) k/uL Lymphocytes # (1.0-4.8) k/uL Monocytes # (0-1.0) k/uL Eosinophils # (0-0.7) k/uL Basophils # (0-0.2) k/uL PT 9.5 (9.0-12.0) sec INR 0.9 (<1.2) APTT 25.5 (22.0-30.0) sec Sodium (137-145) mmol/L Potassium (3.5-5.1) mmol/L Chloride (98-107) mmol/L Carbon Dioxide (22-30) mmol/L Anion Gap mmol/L BUN (7-17) mg/dL Creatinine (0.52-1.04) mg/dL Est GFR (CKD-EPI)AfAm (>60 ml/min/1.73 sqM) Est GFR (CKD-EPI)NonAf (>60 ml/min/1.73 sqM) Glucose (74-99) mg/dL Plasma Lactic Acid [place] (0.7-2.0) mmol/L Calcium (8.4-10.2) mg/dL Total Bilirubin (0.2-1.3) mg/dL AST (14-36) U/L ALT (9-52) U/L Alkaline Phosphatase (38-126) U/L Creatine Kinase (30-135) U/L Total Protein (6.3-8.2) g/dL Albumin (3.5-5.0) g/dL Amylase (30-110) U/L Lipase (23-300) U/L Urine Color Yellow Urine Appearance Turbid H (Clear) Urine pH 7.5 (5.0-8.0) Ur Specific [place] 1.013 (1.001-1.035) Urine Protein Negative (Negative) Urine Glucose (UA) Negative (Negative) Urine Ketones Negative (Negative) Urine Blood Negative (Negative) Urine Nitrite Negative (Negative) Urine Bilirubin Negative (Negative) Urine Urobilinogen <2.0 (<2.0) mg/dL Ur Leukocyte Esterase Negative (Negative) Urine RBC 3 (0-5) /hpf Urine WBC 2 (0-5) /hpf Ur Squamous Epith Cells 4 (0-4) /hpf Amorphous Sediment Rare H (None) /hpf Urine Bacteria Rare H (None) /hpf Urine Mucus Rare H (None) /hpf - Radiology Data Radiology results: report reviewed (I did review the imaging and report or is evidence of a 2 x 4 collection a right cul-de-sac. Concern for abscess. Per patient this is on the other side from where was last time.), image reviewed Disposition Clinical Impression: Abdominal pain, Febrile illness, acute, Postoperative intra-abdominal abscess Disposition: HOME SELF-CARE Condition: Stable Prescriptions: Sulfamethox-Tmp 800-160Mg [Bactrim DS 800-160 mg] 2 each PO Q12HR #12 tab Fluconazole [Diflucan] 150 mg PO DAILY #3 tab Hydrocodone/Acetaminophen [[place] 5-325] 1 each PO Q6HR PRN #20 tab PRN Reason: Pain Is patient prescribed a controlled substance at d/c from ED?: Yes When asked, does pt state using other controlled substances?: No If prescribed controlled substance>3 days was MAPS reviewed?: Prescribed <3 Days If opioid is for acute pain is fill amount 7 days or less?: Yes If Rx opioid, was Start Talking consent form obtained?: Yes Referrals: Javy Mckenzie DO [Primary Care Provider] - 1-2 days
[2019-08-09 20:48] LABS: Basophils # (A) 0.1 k/uL (0-0.2); Basophils % (A) 1 %; Eosinophils # (A) 0.2 k/uL (0-0.7); Eosinophils % (A) 1 %; HCT 38.2 % (34.0-46.0); HGB 12.1 gm/dL (11.4-16.0); Lymphocytes # (A) 2.1 k/uL (1.0-4.8); Lymphocytes % (A) 16 %; MCH 28.8 pg (25.0-35.0); MCHC 31.8 g/dL (31.0-37.0); MCV 90.6 fL (80.0-100.0); Mean Platelet Volume 6.5; Monocytes # (A) 0.6 k/uL (0-1.0); Monocytes % (A) 4 %; Neutrophils # (A) 9.8 k/uL (1.3-7.7); Neutrophils % (A) 77 %; Platelet Count 380 k/uL (150-450); RBC 4.21 m/uL (3.80-5.40); RDW 14.9 % (11.5-15.5); WBC 12.8 k/uL (3.8-10.6)
[2019-08-09 20:56] LABS: INR 0.9 (<1.2); Partial Thromboplastin Time 25.5 sec (22.0-30.0); Prothrombin Time 9.5 sec (9.0-12.0)
[2019-08-09 21:00] LABS: ALT 13 U/L (9-52); AST 19 U/L (14-36); African American GFR (CKD) >90 (>60 ml/min/1.73 sqM); Albumin 4.2 g/dL (3.5-5.0); Alkaline Phosphatase 91 U/L (38-126); Amylase 73 U/L (30-110); Anion Gap 8 mmol/L; Blood Urea Nitrogen 8 mg/dL (7-17); Calcium 9.7 mg/dL (8.4-10.2); Carbon Dioxide 26 mmol/L (22-30); Chloride 102 mmol/L (98-107); Creatine Kinase 28 U/L (30-135); Glucose 113 mg/dL (74-99); Non-African American GFR(CKD) >90 (>60 ml/min/1.73 sqM); Potassium 4.2 mmol/L (3.5-5.1); Sodium 136 mmol/L (137-145); Total Bilirubin 0.7 mg/dL (0.2-1.3); Total Protein 7.2 g/dL (6.3-8.2)
[2019-08-09 22:24] LABS: Amorphous Sediment,Urine Rare /hpf; Appearance,Urine Turbid (Clear); Bacteria,Urine Rare /hpf; Bilirubin,Urine Negative (Negative); Blood,Urine Negative (Negative); Color,Urine Yellow; Glucose,Urine (UA) Negative (Negative); Ketones,Urine Negative (Negative); Leukocyte Esterase,Urine Negative (Negative); Mucus,Urine Rare /hpf; Nitrite,Urine Negative (Negative); PH, Urine 7.5 (5.0-8.0); Protein,Urine Negative (Negative); RBC,Urine 3 /hpf (0-5); Specific Gravity,Urine 1.013 (1.001-1.035); Squamous Epithelial Cell,Urine 4 /hpf (0-4); Urobilinogen,Urine <2.0 mg/dL (<2.0)
--- NOTE | 2019-08-09 22:42 | CT ---
EXAMINATION TYPE: CT abdomen pelvis w con DATE OF EXAM: 08/09/2019 COMPARISON: 07/18/2019 HISTORY: Fever, pelvic pain. Recent rectal prolapse, ovary sx, mesh. Most recent surgery for abscess, was here on 07/18/2019 CT DLP: 949.4 mGycm Automated exposure control for dose reduction was used. CONTRAST: Performed with IV Contrast, patient injected with 100 mL of Isovue 300. Lung bases are clear. There is no pleural effusion. Heart size is normal. Liver spleen stomach pancre as gallbladder appear normal. Bile ducts are not dilated. There is no adrenal mass. Kidneys show satisfactory contrast opacification. There is no hydronephrosi s. Ureters are not dilated. There is no retroperitoneal adenopathy. There is 3.5 cm cyst on the right ovary. There is some fat stranding and subcutaneous edema over the lower anterior abdomen. Bladder d istends smoothly. There is no inguinal hernia. There is some oval-shaped fluid collection in in the cul-de-sac on the right side. This measures 4 x 2 cm and is similar to last exam and could be pelvic abscess. There is no evidence of a bowel obstruction. There is no mesenteric edema. There is no ascites. There is no sign of free air. There is a first-degree L5-S1 spondylolisthesis with bilateral L5 spondyloly sis. Bony pelvis is intact. IMPRESSION: Mild wall thickening of the lower anterior abdomen improved slightly compared to last exam. Subcutane ous edema and postsurgical changes. Right ovary cyst increased compared to last exam. Cul-de-sac flu id collection and mild fat stranding not significantly different than last exam and would be consiste nt with pelvic abscess.
--- NOTE | 2019-08-09 23:23 | XR ---
EXAMINATION TYPE: XR chest 2V DATE OF EXAM: 08/09/2019 COMPARISON: 07/22/2011 HISTORY: Fever TECHNIQUE: Frontal and lateral views of the chest are obtained. FINDINGS: Heart and mediastinum are normal. Lungs are clear. Diaphragm is normal. Bony thorax appear s normal. IMPRESSION: Normal chest. No change.
[2019-08-09] MEDS ORDERED: cefTRIAXone IN SWFI 1,000 MG/10 ML SYRINGE IVP STA (23:32)
[2019-08-10] VITALS: BP 101/63; PULSE 74; RESP 18; TEMP 98.4
[2019-08-10] MEDS ORDERED: HYDROcodone/APAP 5-325MG 1 EACH TAB PO STA (00:14)
== END 2019-08-10 00:20 | disposition home or self-care (01) ==
LOC: EC 19:20
DX: T81.43XA Infection following a procedure, organ and space surgical site, initial encounter (principal); R00.0 Tachycardia, unspecified; R19.7 Diarrhea, unspecified; Z87.891 Personal history of nicotine dependence
CPT/HCPCS: 36415; 71046; 74177; 80053; 81001; 82150; 82550; 83605; 83690; 85025; 85610; 85730; 87040; 96361; 96374; 96375; 99284

== ENCOUNTER → 2019-10-05 | Outpatient (CLI) | payer BC ==
--- NOTE | 2019-10-05 14:34 | US ---
EXAMINATION TYPE: US pelvic limited DATE OF EXAM: 10/05/2019 COMPARISON: CT 08/09/2019 CLINICAL HISTORY: T81.49XA Infection following a procedure, other. History of pelvic surgery a few mo nths ago to remove fallopian tubes and large intestine. Patient developed abscess after surgery & had a wound vac. States she was getting better, but slipped and fell on some ice last week and her incis ion started to "leak". At the patient's surgical incision there is a complex fluid collection that connects with the surface of the skin measuring 4.2 x 4.3 x 7.1 cm Limited scanning was performed at the site of patient's symptomatology. Grayscale and color Doppler i maging performed. IMPRESSION: Findings likely represent phlegmon, edema, correlate for cellulitis. Follow-up as indicat ed.
== END | disposition home or self-care (01) ==
LOC: RADUSMAIN 09:36
PROVIDERS: ATTEND Nurse Practitioner Family
DX: T81.49XA Infection following a procedure, other surgical site, initial encounter (principal)
CPT/HCPCS: 76857

== ENCOUNTER → 2019-10-14 | Outpatient (CLI) | payer BC ==
--- NOTE | 2019-10-14 10:34 | CT ---
EXAMINATION TYPE: CT pelvis w con DATE OF EXAM: 10/14/2019 COMPARISON: 08/09/2019, ultrasound 10/05/2019 HISTORY: open wound/infection anteriorly CT DLP: 775.7 mGycm Automated exposure control for dose reduction was used. CONTRAST: CT scan of the pelvis is performed with IV Contrast, patient injected with 100 mL of Isovue 300. FINDINGS- PELVIS: Mild prominence of the lower collecting system is noted of both kidneys which is stable from prior ex am. There is a large area of abnormal attenuation involving the anterior abdominal wall and anterior subc utaneous tissues which could be related to the patient's reported history of open wound or scar. Sma ll amount of edema could be related to cellulitis or nonspecific edema. There is mild thickening of t he left rectus muscle. No sizable fluid collection within the pelvis. Bladder distends normally. Prominent soft tissue nodu les in the adnexal regions likely related patient's ovaries. Uterus is not seen with certainty. A bilateral spondylolysis with grade 1 spondylolisthesis L5 on S1. IMPRESSION- 1. Abnormal attenuation within the anterior subcutaneous tissues extending to the anterior abdominal wall corresponds with the ultrasound abnormality. No enhancing defined abscess cavity is seen. This a ppears similar to the ultrasound findings. Appears to be skin thickening and possible open wound to t he epidermis. Correlate for cellulitis. Finding would be best followed on ultrasound.
== END | disposition home or self-care (01) ==
LOC: RADCTMAIN 08:28
PROVIDERS: ATTEND Surgery
DX: S31.000A Unspecified open wound of lower back and pelvis without penetration into retroperitoneum, initial encounter (principal)
CPT/HCPCS: 72193; Q9967

== ENCOUNTER 2020-01-20 10:49 | Emergency (ER) | payer BC ==
[2020-01-20 10:58] VITALS: RESP 18
[2020-01-20] MEDS ORDERED: SODIUM CHLORIDE 0.9% 1,000 ML IV STA (11:12)
--- NOTE | 2020-01-20 11:17 | ED ---
General Adult HPI - General Chief complaint: Skin/Abscess/Foreign Body Stated complaint: abscess Time Seen by Provider: 01/20/20 10:58 Source: patient, RN notes reviewed Mode of arrival: ambulatory Limitations: no limitations - History of Present Illness Initial comments: Patient is a pleasant 34-year-old female presenting to the emergency department for evaluation of abdominal wound. 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 Patient has had surgeries at [facility] as well as at the [facility]. Last procedure was 3-4 months ago. Patient does have wounds that she packs. Patient has noticed some drainage, some bleeding since yesterday. Patient does have history of previous abscess. Patient was advised from the [facility] to be evaluated for possible abscess. - Related Data Previous Rx's Medication Instructions Recorded Fluconazole [Diflucan] 150 mg PO DAILY #3 tab 08/09/19 Hydrocodone/Acetaminophen [[place] 1 each PO Q6HR PRN #20 tab 08/09/19 5-325] Sulfamethox-Tmp 800-160Mg [Bactrim 2 each PO Q12HR #12 tab 08/09/19 DS 800-160 mg] Cephalexin [Keflex] 500 mg PO TID #21 cap 01/20/20 Allergies Allergy/AdvReac Type Severity Reaction Status Date / Time No Known Allergies Allergy Verified 08/09/19 20:52 Review of Systems ROS Statement: Those systems with pertinent positive or pertinent negative responses have been documented in the HPI. ROS Other: All systems not noted in ROS Statement are negative. Constitutional: Denies: fever Eyes: Denies: eye pain ENT: Denies: ear pain Respiratory: Denies: cough Cardiovascular: Denies: chest pain Endocrine: Denies: fatigue Gastrointestinal: Reports: as per HPI, abdominal pain (Mild discomfort left of her wound). Denies: nausea, vomiting Genitourinary: Denies: dysuria Musculoskeletal: Denies: back pain Skin: Reports: as per HPI Past Medical History Past Medical History: Coronary Artery Disease (CAD) Additional Past Medical History / Comment(s): endometeriosis, connective tissue disorder. History of Any Multi-Drug Resistant Organisms: MRSA Date of last positivie culture/infection: 07/27/19 MDRO Source:: abdomen Past Surgical History: Bowel Resection, Hysterectomy Additional Past Surgical History / Comment(s): rectal prolapse surgery, Multiple abd surgeries follows up with [facility] [place]. Past Psychological History: No Psychological Hx Reported Smoking Status: Former smoker Past Alcohol Use History: Occasional Past Drug Use History: None Reported - Past Family History Father Family Medical History: Musculoskeletal Disorder Additional Family Medical History / Comment(s): MS General Exam Limitations: no limitations General appearance: alert, in no apparent distress Head exam: Present: normocephalic Eye exam: Present: normal appearance Neck exam: Present: normal inspection Respiratory exam: Present: normal lung sounds bilaterally Cardiovascular Exam: Present: regular rate, normal rhythm GI/Abdominal exam: Present: soft, tenderness (Minimal tenderness left mid to lower abdomen.), other (Abdominal wound just below the umbilicus which is open approximately 2 cm with packing present. No discharge.) Extremities exam: Present: normal inspection Neurological exam: Present: alert Psychiatric exam: Present: normal affect, normal mood Skin exam: Present: normal color Course Vital Signs 01/20/20 10:52 Temperature 99.1 F Pulse Rate 85 Respiratory 18 Rate Blood Pressure 122/82 O2 Sat by Pulse 98 Oximetry EKG Findings - EKG Comments: EKG Findings:: Normal sinus rhythm 63. NH 170. QRS 94. QT 412. QTC 421. Left axis. LVH. No acute ST change. Medical Decision Making - Medical Decision Making Patient reevaluated and updated. Patient states she did have trace amount of almost purulent discharge yesterday. Secondary to this patient will be covered with short-term of oral antibiotic's. Patient is advised follow-up with surgery, patient has previously seen Dr. Causey. Patient also advised to follow-up with [facility]. Patient will be provided computed tomography scan of her abdomen to take home with her for follow-up. - Lab Data Result diagrams: 01/20/20 11:55 01/20/20 11:55 Lab Results 01/20/20 01/20/20 01/20/20 Range/Units 11:19 11:19 11:55 WBC 8.9 (3.8-10.6) k/uL RBC 4.72 (3.80-5.40) m/uL Hgb 13.4 (11.4-16.0) gm/dL Hct 42.8 (34.0-46.0) % MCV 90.6 (80.0-100.0) fL MCH 28.4 (25.0-35.0) pg MCHC 31.3 (31.0-37.0) g/dL RDW 14.1 (11.5-15.5) % Plt Count 331 (150-450) k/uL Neutrophils % 71 % Lymphocytes % 22 % Monocytes % 3 % Eosinophils % 1 % Basophils % 1 % Neutrophils # 6.3 (1.3-7.7) k/uL Lymphocytes # 2.0 (1.0-4.8) k/uL Monocytes # 0.3 (0-1.0) k/uL Eosinophils # 0.1 (0-0.7) k/uL Basophils # 0.1 (0-0.2) k/uL Sodium (137-145) mmol/L Potassium (3.5-5.1) mmol/L Chloride (98-107) mmol/L Carbon Dioxide (22-30) mmol/L Anion Gap mmol/L BUN (7-17) mg/dL Creatinine (0.52-1.04) mg/dL Est GFR (CKD-EPI)AfAm (>60 ml/min/1.73 sqM) Est GFR (CKD-EPI)NonAf (>60 ml/min/1.73 sqM) Glucose (74-99) mg/dL Calcium (8.4-10.2) mg/dL Total Bilirubin (0.2-1.3) mg/dL AST (14-36) U/L ALT (4-34) U/L Alkaline Phosphatase (38-126) U/L Total Protein (6.3-8.2) g/dL Albumin (3.5-5.0) g/dL Amylase (30-110) U/L Lipase (23-300) U/L Urine Color Light Yellow Urine Appearance Clear (Clear) Urine pH 7.0 (5.0-8.0) Ur Specific [place] 1.005 (1.001-1.035) Urine Protein Negative (Negative) Urine Glucose (UA) Negative (Negative) Urine Ketones Negative (Negative) Urine Blood Negative (Negative) Urine Nitrite Negative (Negative) Urine Bilirubin Negative (Negative) Urine Urobilinogen <2.0 (<2.0) mg/dL Ur Leukocyte Esterase Negative (Negative) Urine HCG, Qual Not Detected (Not Detectd) 01/20/20 Range/Units 11:55 WBC (3.8-10.6) k/uL RBC (3.80-5.40) m/uL Hgb (11.4-16.0) gm/dL Hct (34.0-46.0) % MCV (80.0-100.0) fL MCH (25.0-35.0) pg MCHC (31.0-37.0) g/dL RDW (11.5-15.5) % Plt Count (150-450) k/uL Neutrophils % % Lymphocytes % % Monocytes % % Eosinophils % % Basophils % % Neutrophils # (1.3-7.7) k/uL Lymphocytes # (1.0-4.8) k/uL Monocytes # (0-1.0) k/uL Eosinophils # (0-0.7) k/uL Basophils # (0-0.2) k/uL Sodium 137 (137-145) mmol/L Potassium 4.0 (3.5-5.1) mmol/L Chloride 103 (98-107) mmol/L Carbon Dioxide 26 (22-30) mmol/L Anion Gap 8 mmol/L BUN 9 (7-17) mg/dL Creatinine 0.66 (0.52-1.04) mg/dL Est GFR (CKD-EPI)AfAm >90 (>60 ml/min/1.73 sqM) Est GFR (CKD-EPI)NonAf >90 (>60 ml/min/1.73 sqM) Glucose 126 H (74-99) mg/dL Calcium 9.7 (8.4-10.2) mg/dL Total Bilirubin 0.6 (0.2-1.3) mg/dL AST 27 (14-36) U/L ALT 15 (4-34) U/L Alkaline Phosphatase 73 (38-126) U/L Total Protein 7.3 (6.3-8.2) g/dL Albumin 4.5 (3.5-5.0) g/dL Amylase 65 (30-110) U/L Lipase 100 (23-300) U/L Urine Color Urine Appearance (Clear) Urine pH (5.0-8.0) Ur Specific [place] (1.001-1.035) Urine Protein (Negative) Urine Glucose (UA) (Negative) Urine Ketones (Negative) Urine Blood (Negative) Urine Nitrite (Negative) Urine Bilirubin (Negative) Urine Urobilinogen (<2.0) mg/dL Ur Leukocyte Esterase (Negative) Urine HCG, Qual (Not Detectd) - Radiology Data Radiology results: report reviewed (Computed tomography scan of the abdomen pelvis significant improvement from prior. Postoperative change. Mild residual subcutaneous stranding process. No evidence of abscess.) Disposition Clinical Impression: Open abdominal wall wound Disposition: HOME SELF-CARE Condition: Stable Instructions (If sedation given, give patient instructions): Chronic Wound Care (ED) Additional Instructions: Please follow-up with surgeon in the next couple days for recheck. Please also follow-up with [facility]. Return for fever, pain, drainage, worsening symptoms or other concerns. Prescription sent to [facility] Prescriptions: Cephalexin [Keflex] 500 mg PO TID #21 cap Is patient prescribed a controlled substance at d/c from ED?: No Referrals: Bianka Bernal III, MD [Primary Care Provider] - 1-2 days Time of Disposition: 13:44
[2020-01-20 11:25] LABS: Appearance,Urine Clear (Clear); Bilirubin,Urine Negative (Negative); Blood,Urine Negative (Negative); Color,Urine Light Yellow; Glucose,Urine (UA) Negative (Negative); Ketones,Urine Negative (Negative); Leukocyte Esterase,Urine Negative (Negative); Nitrite,Urine Negative (Negative); Protein,Urine Negative (Negative); Specific Gravity,Urine 1.005 (1.001-1.035); Urobilinogen,Urine <2.0 mg/dL (<2.0)
[2020-01-20] MEDS ORDERED: MORPHINE SULFATE 4 MG/ML SYRINGE IV STA (11:43)
[2020-01-20 12:11] LABS: Basophils # (A) 0.1 k/uL (0-0.2); Basophils % (A) 1 %; Eosinophils # (A) 0.1 k/uL (0-0.7); Eosinophils % (A) 1 %; HCT 42.8 % (34.0-46.0); HGB 13.4 gm/dL (11.4-16.0); Lymphocytes % (A) 22 %; MCH 28.4 pg (25.0-35.0); MCHC 31.3 g/dL (31.0-37.0); MCV 90.6 fL (80.0-100.0); Mean Platelet Volume 7.5; Monocytes # (A) 0.3 k/uL (0-1.0); Monocytes % (A) 3 %; Neutrophils # (A) 6.3 k/uL (1.3-7.7); Neutrophils % (A) 71 %; Platelet Count 331 k/uL (150-450); RBC 4.72 m/uL (3.80-5.40); RDW 14.1 % (11.5-15.5); WBC 8.9 k/uL (3.8-10.6)
[2020-01-20 12:21] LABS: ALT 15 U/L (4-34); AST 27 U/L (14-36); African American GFR (CKD) >90 (>60 ml/min/1.73 sqM); Albumin 4.5 g/dL (3.5-5.0); Alkaline Phosphatase 73 U/L (38-126); Amylase 65 U/L (30-110); Anion Gap 8 mmol/L; Blood Urea Nitrogen 9 mg/dL (7-17); Calcium 9.7 mg/dL (8.4-10.2); Carbon Dioxide 26 mmol/L (22-30); Chloride 103 mmol/L (98-107); Glucose 126 mg/dL (74-99); Non-African American GFR(CKD) >90 (>60 ml/min/1.73 sqM); Sodium 137 mmol/L (137-145); Total Bilirubin 0.6 mg/dL (0.2-1.3); Total Protein 7.3 g/dL (6.3-8.2)
--- NOTE | 2020-01-20 13:11 | CT ---
EXAMINATION TYPE: CT abdomen pelvis w con DATE OF EXAM: 01/20/2020 COMPARISON: October 14, 2019 HISTORY: Evaluate for abdominal wall abscess CT DLP: 1034.1 mGycm CONTRAST: CT scan of the abdomen and pelvis is performed without Oral Contrast and with IV Contrast, patient in jected with 100 ml mL of Isovue 300. FINDINGS: LUNG BASES-: No visible nodule. No infiltrate. LIVER/GB: No calcified gallstones. No space occupying hepatic lesion. Biliary tree is of normal ca liber. PANCREAS: No inflammation. No distinct mass. SPLEEN: No splenic enlargement. No lesion seen. ADRENALS: No nodule. No thickening. KIDNEYS/BLADDER: No hydronephrosis. No nephrolithiasis. No distinct renal mass. Urinary bladder g rossly unremarkable. BOWEL: Normal appendix. Normal bowel caliber. No inflammation. GENITAL ORGANS: Hysterectomy changes noted. Postoperative changes of the sigmoid colon. LYMPH NODES: No greater than 1cm abdominal or pelvic lymph nodes are appreciated. AORTA: No significant abnormality. OSSEOUS STRUCTURES: No significant abnormality is seen. OTHER: Low anterior abdominal wall postoperative change/postinflammatory change has improved signific antly from prior examination. Mild residual subcutaneous stranding persists. There is no evidence for abscess. Portion of the wound remains open. IMPRESSION: 1. Low anterior abdominal wall postoperative change/postinflammatory change has improved significantl y from prior examination. Mild residual subcutaneous stranding persists. There is no evidence for abs cess.
[2020-01-20 14:01] VITALS: BP 121/79; PULSE 75; TEMP 98.9
== END 2020-01-20 14:00 | disposition home or self-care (01) ==
LOC: EC 10:49
DX: S31.104A Unspecified open wound of abdominal wall, left lower quadrant without penetration into peritoneal cavity, initial encounter (principal); Z87.891 Personal history of nicotine dependence; Z86.14 Personal history of Methicillin resistant Staphylococcus aureus infection; Y83.9 Surgical procedure, unspecified as the cause of abnormal reaction of the patient, or of later complication, without mention of misadventure at the time of the procedure
CPT/HCPCS: 36415; 80053; 82150; 83690; 85025; 81003; 81025; 87040; 74177; 99284; 96374; 96361 ×2; J2270; Q9967

== ENCOUNTER 2021-10-16 07:35 | Emergency (ER) | payer BC ==
[2021-10-16 07:41] VITALS: PULSE 80; TEMP 98.1
[2021-10-16] MEDS ORDERED: diphenhydrAMINE 50 MG/ML 1 ML VIAL IVP STA (07:58)
[2021-10-16] MEDS ORDERED: FAMOTIDINE 20 MG/2 ML VIAL IV STA (07:58)
[2021-10-16] MEDS ORDERED: methylPREDNISolone SOD SUCCI 125 MG/2 ML VIAL IV STA (07:58)
[2021-10-16 08:40] LABS: Basophils # (A) 0.1 k/uL (0-0.2); Basophils % (A) 1 %; Eosinophils # (A) 0.2 k/uL (0-0.7); Eosinophils % (A) 2 %; HCT 46.2 % (34.0-46.0); HGB 14.9 gm/dL (11.4-16.0); Lymphocytes # (A) 2.5 k/uL (1.0-4.8); Lymphocytes % (A) 28 %; MCH 29.9 pg (25.0-35.0); MCHC 32.2 g/dL (31.0-37.0); Mean Platelet Volume 9.6; Monocytes # (A) 0.4 k/uL (0-1.0); Monocytes % (A) 5 %; Neutrophils # (A) 5.6 k/uL (1.3-7.7); Neutrophils % (A) 63 %; Platelet Count 308 k/uL (150-450); RBC 4.97 m/uL (3.80-5.40); RDW 12.7 % (11.5-15.5); WBC 8.9 k/uL (3.8-10.6)
[2021-10-16 08:52] LABS: African American GFR (CKD) >90 (>60 ml/min/1.73 sqM); Albumin 4.9 g/dL (3.5-5.0); Alkaline Phosphatase 52 U/L (38-126); Anion Gap 8 mmol/L; Blood Urea Nitrogen 14 mg/dL (7-17); Calcium 9.3 mg/dL (8.4-10.2); Chloride 108 mmol/L (98-107); Non-African American GFR(CKD) >90 (>60 ml/min/1.73 sqM); Sodium 136 mmol/L (137-145)
[2021-10-16] MEDS ORDERED: SODIUM CHLORIDE 0.9% 500 ML 500 ML IV ONE (08:55)
[2021-10-16 09:36] LABS: Potassium 4.3 mmol/L (3.5-5.1)
--- NOTE | 2021-10-16 09:51 | ED ---
General Adult HPI - General Chief complaint: Eye Problems Stated complaint: eye pain & swelling Time Seen by Provider: 10/16/21 07:45 Source: patient, family, RN notes reviewed Mode of arrival: ambulatory Limitations: no limitations - History of Present Illness Initial comments: 36-year-old female presents emergency apartment with chief complaint of bila teral eye swelling. Patient states that having some on-and-off issues of the last month or so. But states it worse in the last day. Patient states her eyes are very swollen, and she rounded has no visual changes no actual eye pain she states is just the skin around her eyes. Patient states her eyes feel normal she states his skin is swollen, itchy, dry feeling. She states she had an issue want to so ago when she saw her primary care physician for they were unsure what it was caused by maybe possible contact dermatitis she states it alleviated by itself but this is worse and last time. - Related Data Previous Rx's Medication Instructions Recorded predniSONE 50 mg PO DAILY #5 tab 10/16/21 Allergies Allergy/AdvReac Type Severity Reaction Status Date / Time No Known Allergies Allergy Verified 10/16/21 09:23 Review of Systems ROS Statement: Those systems with pertinent positive or pertinent negative responses have been documented in the HPI. ROS Other: All systems not noted in ROS Statement are negative. Past Medical History Past Medical History: Coronary Artery Disease (CAD) Additional Past Medical History / Comment(s): endometeriosis, connective tissue disorder. History of Any Multi-Drug Resistant Organisms: MRSA Date of last positivie culture/infection: 07/27/19 MDRO Source:: abdomen Past Surgical History: Bowel Resection, Hysterectomy Additional Past Surgical History / Comment(s): rectal prolapse surgery, Multiple abd surgeries follows up with [facility]. Past Psychological History: No Psychological Hx Reported Smoking Status: Never smoker Past Alcohol Use History: Occasional Past Drug Use History: None Reported - Past Family History Father Family Medical History: Musculoskeletal Disorder Additional Family Medical History / Comment(s): MS General Exam Limitations: no limitations General appearance: alert, in no apparent distress Head exam: Present: atraumatic, normocephalic, normal inspection Eye exam: Present: normal appearance, PERRL, EOMI, periorbital swelling. Absent: scleral icterus, conjunctival injection ENT exam: Present: normal exam, mucous membranes moist, other Neck exam: Present: normal inspection, full ROM. Absent: tenderness, meningismus, lymphadenopathy Respiratory exam: Present: normal lung sounds bilaterally. Absent: respiratory distress, wheezes, rales, rhonchi, stridor Cardiovascular Exam: Present: regular rate, normal rhythm, normal heart sounds. Absent: systolic murmur, diastolic murmur, rubs, gallop, clicks Course Vital Signs 10/16/21 07:36 Temperature 98.1 F Pulse Rate 80 Respiratory 18 Rate Blood Pressure 137/93 O2 Sat by Pulse 100 Oximetry Medical Decision Making - Medical Decision Making Patient reevaluated feels greatly improved, appears to be improved patient most likely have an ALLERGIC reaction may be contact dermatitis. Patient we discharged with prednisone return parameters were discussed. - Lab Data Result diagrams: 10/16/21 08:08 10/16/21 09:10 Lab Results 10/16/21 10/16/21 10/16/21 Range/Units 08:08 08:08 09:10 WBC 8.9 (3.8-10.6) k/uL RBC 4.97 (3.80-5.40) m/uL Hgb 14.9 (11.4-16.0) gm/dL Hct 46.2 H (34.0-46.0) % MCV 93.0 (80.0-100.0) fL MCH 29.9 (25.0-35.0) pg MCHC 32.2 (31.0-37.0) g/dL RDW 12.7 (11.5-15.5) % Plt Count 308 (150-450) k/uL MPV 9.6 Neutrophils % 63 % Lymphocytes % 28 % Monocytes % 5 % Eosinophils % 2 % Basophils % 1 % Neutrophils # 5.6 (1.3-7.7) k/uL Lymphocytes # 2.5 (1.0-4.8) k/uL Monocytes # 0.4 (0-1.0) k/uL Eosinophils # 0.2 (0-0.7) k/uL Basophils # 0.1 (0-0.2) k/uL Sodium 136 L (137-145) mmol/L Potassium 6.0 H 4.3 (3.5-5.1) mmol/L Chloride 108 H (98-107) mmol/L Carbon Dioxide 20 L (22-30) mmol/L Anion Gap 8 mmol/L BUN 14 (7-17) mg/dL Creatinine 0.67 (0.52-1.04) mg/dL Est GFR (CKD-EPI)AfAm >90 (>60 ml/min/1.73 sqM) Est GFR (CKD-EPI)NonAf >90 (>60 ml/min/1.73 sqM) Glucose 103 H (74-99) mg/dL Calcium 9.3 (8.4-10.2) mg/dL Total Bilirubin 1.9 H (0.2-1.3) mg/dL AST 58 H (14-36) U/L ALT 17 (4-34) U/L Alkaline Phosphatase 52 (38-126) U/L Total Protein 8.5 H (6.3-8.2) g/dL Albumin 4.9 (3.5-5.0) g/dL TSH 1.460 (0.465-4.680) mIU/L Disposition Clinical Impression: Periorbital edema of both eyes, Allergic reaction Disposition: HOME SELF-CARE Condition: Stable Instructions (If sedation given, give patient instructions): General Allergic Reaction (ED) Additional Instructions: Please return to the Emergency Department if symptoms worsen or any other concerns. Prescriptions: predniSONE 50 mg PO DAILY #5 tab Is patient prescribed a controlled substance at d/c from ED?: No Referrals: Bianka Bernal III, MD [Primary Care Provider] - 1-2 days Time of Disposition: 09:50
[2021-10-16 10:30] LABS: Glucose 103 mg/dL (74-99)
[2021-10-16 10:34] LABS: ALT 14 U/L (4-34); AST 22 U/L (14-36); African American GFR (CKD) >90 (>60 ml/min/1.73 sqM); Albumin 4.1 g/dL (3.5-5.0); Alkaline Phosphatase 57 U/L (38-126); Anion Gap 6 mmol/L; Blood Urea Nitrogen 13 mg/dL (7-17); Calcium 9.1 mg/dL (8.4-10.2); Carbon Dioxide 24 mmol/L (22-30); Chloride 108 mmol/L (98-107); Glucose 98 mg/dL (74-99); Non-African American GFR(CKD) >90 (>60 ml/min/1.73 sqM); Sodium 138 mmol/L (137-145); Total Bilirubin 0.6 mg/dL (0.2-1.3)
[2021-10-16 10:36] VITALS: BP 132/78; RESP 20
[2021-10-16 11:25] LABS: AST 58 U/L (14-36)
[2021-10-16 11:26] LABS: ALT 17 U/L (4-34)
[2021-10-16 11:30] LABS: Total Bilirubin 1.9 mg/dL (0.2-1.3); Total Protein 8.5 g/dL (6.3-8.2)
[2021-10-16 11:31] LABS: Carbon Dioxide 20 mmol/L (22-30)
== END 2021-10-16 10:36 | disposition home or self-care (01) ==
LOC: EC 07:35
DX: H05.229 Edema of unspecified orbit (principal)
CPT/HCPCS: 36415; 80053; 84443; 85025; 99283; 96374; 96375; J1200; J2930

== ENCOUNTER 2022-02-12 16:14 | Observation (INO) | payer BC ==
--- NOTE | 2022-02-12 16:43 | ED ---
General Adult HPI - General Chief complaint: Neuro Symptoms/Deficit Stated complaint: TIA symptoms Time Seen by Provider: 02/12/22 16:28 Source: patient, RN notes reviewed Mode of arrival: ambulatory Limitations: no limitations - History of Present Illness Initial comments: Patient is a pleasant 37-year-old female presenting to the emergency department with concern for possible neurological symptoms. Around 8 or 8:30 this morning patient had an episode of kaleidoscope-like visual changes on the right lateral eye. Following this patient had expressive aphasia lasting about 5 minutes. Patient had problems finding words and words came out garbled. Symptoms then resolved. Patient had a second episode around 12:30. Patient was trying to sign her name and wasn't able to. Following this patient walked to her car and then felt generally weak. These symptoms lasted less than 15 minutes. In route patient's friend did notice occasional minimal speech problems. Currently patient is symptom-free. Patient does have an appointment to see a neurologist secondary to history of blurry vision. - Related Data Home Medications Medication Instructions Recorded Confirmed Dexmethylphenidate HCl 30 mg PO DAILY 02/12/22 02/12/22 [Dexmethylphenidate HCl ER] Allergies Allergy/AdvReac Type Severity Reaction Status Date / Time No Known Allergies Allergy Verified 02/12/22 17:08 Review of Systems ROS Statement: Those systems with pertinent positive or pertinent negative responses have been documented in the HPI. ROS Other: All systems not noted in ROS Statement are negative. Constitutional: Denies: fever Eyes: Reports: as per HPI, vision change. Denies: eye pain ENT: Denies: ear pain Respiratory: Denies: cough Cardiovascular: Denies: chest pain Endocrine: Denies: fatigue Gastrointestinal: Denies: abdominal pain Genitourinary: Denies: urgency Musculoskeletal: Denies: back pain Skin: Denies: rash Neurological: Reports: as per HPI. Denies: headache Past Medical History Past Medical History: Coronary Artery Disease (CAD) Additional Past Medical History / Comment(s): endometeriosis, connective tissue disorder. History of Any Multi-Drug Resistant Organisms: MRSA Date of last positivie culture/infection: 07/27/19 MDRO Source:: abdomen Past Surgical History: Bowel Resection, Hysterectomy Additional Past Surgical History / Comment(s): rectal prolapse surgery, Multiple abd surgeries follows up with [facility]. Past Psychological History: No Psychological Hx Reported Smoking Status: Never smoker Past Alcohol Use History: Occasional Past Drug Use History: None Reported - Past Family History Father Family Medical History: Musculoskeletal Disorder Additional Family Medical History / Comment(s): MS General Exam Limitations: no limitations General appearance: alert, in no apparent distress Head exam: Present: atraumatic, normocephalic Eye exam: Present: normal appearance, PERRL, EOMI Neck exam: Present: normal inspection Respiratory exam: Present: normal lung sounds bilaterally Cardiovascular Exam: Present: regular rate, normal rhythm GI/Abdominal exam: Present: soft. Absent: tenderness Extremities exam: Present: normal inspection Neurological exam: Present: alert, oriented X3, CN II-XII intact. Absent: motor sensory deficit Expanded Neurological exam: Present: protecting the airway Speech: Present: fluid speech Cranial nerves: EOM's Intact: Normal Sensory exam: Upper Extremity Light Touch: Normal, Lower Extremity Light Touch: Normal Motor strength exam: RUE: 5, LUE: 5, RLE: 5, LLE: 5 Eye Response: (4) open spontaneously Motor Response: (6) obeys commands Verbal Response: (5) oriented Psychiatric exam: Present: normal affect, normal mood Skin exam: Present: normal color Course Vital Signs 02/12/22 02/12/22 02/12/22 16:23 16:45 17:00 Temperature 98.5 F 98.0 F 98.2 F Pulse Rate 99 72 75 Respiratory 18 18 16 Rate Blood Pressure 137/95 142/99 133/82 O2 Sat by Pulse 99 99 98 Oximetry 02/12/22 17:15 Temperature 98.1 F Pulse Rate 73 Respiratory 20 Rate Blood Pressure 121/74 O2 Sat by Pulse 99 Oximetry - Reevaluation(s) Reevaluation #1: 02/12/22 17:19 Case was earlier discussed with Dr. Rashid who agrees patient is not a TPA candidate secondary to resolution of symptoms. EKG Findings - EKG Comments: EKG Findings:: Sinus rhythm rate 80. [place] 160. QRS 119. QT 374. QTC 410. Normal axis. Incomplete right bundle-branch block. No acute ST change. Medical Decision Making - Medical Decision Making Patient reevaluated and resting comfortably in bed. Patient does remain symptom-free. Patient updated on results and plan. Case was discussed with Dr. Payan, who will admit covering hospital observation call. - Lab Data Result diagrams: 02/12/22 16:59 02/12/22 16:59 Lab Results 02/12/22 02/12/22 02/12/22 Range/Units 16:59 16:59 16:59 WBC 12.5 H (3.8-10.6) k/uL RBC 4.98 (3.80-5.40) m/uL Hgb 14.5 (11.4-16.0) gm/dL Hct 45.9 (34.0-46.0) % MCV 92.1 (80.0-100.0) fL MCH 29.0 (25.0-35.0) pg MCHC 31.5 (31.0-37.0) g/dL RDW 12.7 (11.5-15.5) % Plt Count 370 (150-450) k/uL MPV 8.3 Neutrophils % 72 % Lymphocytes % 22 % Monocytes % 4 % Eosinophils % 1 % Basophils % 1 % Neutrophils # 8.9 H (1.3-7.7) k/uL Lymphocytes # 2.7 (1.0-4.8) k/uL Monocytes # 0.5 (0-1.0) k/uL Eosinophils # 0.1 (0-0.7) k/uL Basophils # 0.1 (0-0.2) k/uL PT 10.3 (9.0-12.0) sec INR 0.9 (<1.2) APTT 23.7 (22.0-30.0) sec Sodium 138 (137-145) mmol/L Potassium 4.1 (3.5-5.1) mmol/L Chloride 104 (98-107) mmol/L Carbon Dioxide 24 (22-30) mmol/L Anion Gap 10 mmol/L BUN 9 (7-17) mg/dL Creatinine 0.76 (0.52-1.04) mg/dL Est GFR (CKD-EPI)AfAm >90 (>60 ml/min/1.73 sqM) Est GFR (CKD-EPI)NonAf >90 (>60 ml/min/1.73 sqM) Glucose 97 (74-99) mg/dL Calcium 9.4 (8.4-10.2) mg/dL Total Bilirubin 0.6 (0.2-1.3) mg/dL AST 27 (14-36) U/L ALT 16 (4-34) U/L Alkaline Phosphatase 73 (38-126) U/L Troponin I (0.000-0.034) ng/mL Total Protein 8.5 H (6.3-8.2) g/dL Albumin 5.2 H (3.5-5.0) g/dL 02/12/22 Range/Units 16:59 WBC (3.8-10.6) k/uL RBC (3.80-5.40) m/uL Hgb (11.4-16.0) gm/dL Hct (34.0-46.0) % MCV (80.0-100.0) fL MCH (25.0-35.0) pg MCHC (31.0-37.0) g/dL RDW (11.5-15.5) % Plt Count (150-450) k/uL MPV Neutrophils % % Lymphocytes % % Monocytes % % Eosinophils % % Basophils % % Neutrophils # (1.3-7.7) k/uL Lymphocytes # (1.0-4.8) k/uL Monocytes # (0-1.0) k/uL Eosinophils # (0-0.7) k/uL Basophils # (0-0.2) k/uL PT (9.0-12.0) sec INR (<1.2) APTT (22.0-30.0) sec Sodium (137-145) mmol/L Potassium (3.5-5.1) mmol/L Chloride (98-107) mmol/L Carbon Dioxide (22-30) mmol/L Anion Gap mmol/L BUN (7-17) mg/dL Creatinine (0.52-1.04) mg/dL Est GFR (CKD-EPI)AfAm (>60 ml/min/1.73 sqM) Est GFR (CKD-EPI)NonAf (>60 ml/min/1.73 sqM) Glucose (74-99) mg/dL Calcium (8.4-10.2) mg/dL Total Bilirubin (0.2-1.3) mg/dL AST (14-36) U/L ALT (4-34) U/L Alkaline Phosphatase (38-126) U/L Troponin I <0.012 (0.000-0.034) ng/mL Total Protein (6.3-8.2) g/dL Albumin (3.5-5.0) g/dL - Radiology Data Radiology results: report reviewed (CT brain and CT angiogram reveals no acute process), image reviewed (Two-view chest x-ray shows no acute process.) Disposition Clinical Impression: Transient cerebral ischemia Disposition: ADMITTED IP TO THIS HOSP Is patient prescribed a controlled substance at d/c from ED?: No Referrals: Bianka Bernal III, MD [Primary Care Provider] - 1-2 days Time of Disposition: 18:05
--- NOTE | 2022-02-12 17:08 | CT ---
EXAMINATION TYPE: CT brain wo con for TPA DATE OF EXAM: 02/12/2022 COMPARISON: MR scan 08/28/2011 HISTORY: cva CT DLP: 1090.4 mGycm Automated exposure control for dose reduction was used. Images of the brain obtained with no contrast. Ventricles of normal size. There is no mass effect or midline shift. No sign of intracranial hemorrha ge. Calvarium is intact. IMPRESSION: Negative unenhanced head CT scan.
[2022-02-12 17:09] LABS: Basophils # (A) 0.1 k/uL (0-0.2); Basophils % (A) 1 %; Eosinophils # (A) 0.1 k/uL (0-0.7); Eosinophils % (A) 1 %; HCT 45.9 % (34.0-46.0); HGB 14.5 gm/dL (11.4-16.0); Lymphocytes # (A) 2.7 k/uL (1.0-4.8); Lymphocytes % (A) 22 %; MCHC 31.5 g/dL (31.0-37.0); MCV 92.1 fL (80.0-100.0); Mean Platelet Volume 8.3; Monocytes # (A) 0.5 k/uL (0-1.0); Monocytes % (A) 4 %; Neutrophils # (A) 8.9 k/uL (1.3-7.7); Neutrophils % (A) 72 %; Platelet Count 370 k/uL (150-450); RBC 4.98 m/uL (3.80-5.40); RDW 12.7 % (11.5-15.5); WBC 12.5 k/uL (3.8-10.6)
[2022-02-12 17:19] LABS: ALT 16 U/L (4-34); AST 27 U/L (14-36); African American GFR (CKD) >90 (>60 ml/min/1.73 sqM); Albumin 5.2 g/dL (3.5-5.0); Alkaline Phosphatase 73 U/L (38-126); Anion Gap 10 mmol/L; Blood Urea Nitrogen 9 mg/dL (7-17); Calcium 9.4 mg/dL (8.4-10.2); Carbon Dioxide 24 mmol/L (22-30); Chloride 104 mmol/L (98-107); Glucose 97 mg/dL (74-99); Non-African American GFR(CKD) >90 (>60 ml/min/1.73 sqM); Potassium 4.1 mmol/L (3.5-5.1); Sodium 138 mmol/L (137-145); Total Bilirubin 0.6 mg/dL (0.2-1.3); Total Protein 8.5 g/dL (6.3-8.2)
[2022-02-12 17:32] LABS: INR 0.9 (<1.2); Prothrombin Time 10.3 sec (9.0-12.0)
[2022-02-12 17:33] LABS: Partial Thromboplastin Time 23.7 sec (22.0-30.0)
--- NOTE | 2022-02-12 17:42 | CT ---
EXAMINATION TYPE: CT angio head neck DATE OF EXAM: 02/12/2022 COMPARISON: None HISTORY: cva CT DLP: 555.4 mGycm Automated exposure control for dose reduction was used. CONTRAST: Performed with IV Contrast, patient injected with 65cc mL of Isovue 370. Images obtained from the aortic arch to the vertex of the brain with IV contrast. There are Three-D p ostprocessed images. There is normal branching pattern of the great vessels on the aortic arch. There is bilateral arteria l flow in the subclavian arteries. There is arterial flow in the common internal and external carotid arteries bilaterally. There is wide patency of the carotid artery bifurcations. There is arterial flow in both vertebral arteries. There is no evidence of carotid or vertebral arter y aneurysm or dissection. There is arterial flow in the anterior middle and posterior cerebral arteries bilaterally. No evidenc e of intracranial aneurysm or neovascularity. No mass effect. No evidence of hemodynamic stenosis. Th ere is normal enhancement of the venous sinuses. IMPRESSION: Normal CT angiogram of the neck. Normal CT angiogram of the brain.
--- NOTE | 2022-02-12 17:46 | XR ---
EXAMINATION TYPE: XR chest 2V DATE OF EXAM: 02/12/2022 COMPARISON: 08/09/2019 HISTORY: Altered mental status TECHNIQUE: FINDINGS: Heart and mediastinum are normal. Lungs are clear. Diaphragm is normal. Bony thorax appears normal. IMPRESSION: Normal chest. No change.
[2022-02-12] MEDS ORDERED: ASPIRIN 325 MG TAB PO STA (18:05)
[2022-02-12] MEDS: SODIUM CHLORIDE 0.9% 1,000 ML IV SCH (19:42)
[2022-02-12 22:58] LABS: Protein, Total 7.9 g/dL (6.2-8.2)
[2022-02-12] MEDS ORDERED: ATORVASTATIN 80 MG TAB PO SCH (23:45)
--- NOTE | 2022-02-12 23:56 | P.HPIM ---
History of Present Illness H&P Date: 02/12/22 The patient is a 37-year-old female with no known PMH who presents to the emergency room with multiple neurological complaints. Patient reports that over the past several months, she has been experiencing occasional weakness and heaviness of her legs. She also reports occasional blurred vision, most recent of which was 8 AM this morning when she had an episode where she developed kaleidoscope-like visual changes most prominently in the right eye. She then had word finding difficulties as well as garbled speech for 5-10 minutes. She had another similar episode at around noon when as per her and son at the bedside, the patient was also confused. She also reports feeling diffusely weak during this time. Her symptoms lasted for roughly 15 minutes and then resolved. The patient reports that she recently had an MRI brain at [place], which had no abnormal lesions indicative of multiple sclerosis as per the patient. Patient's father and paternal grandmother have MS. At time of interview, the patient reported feeling back to her baseline. She denied experiencing numbness or tingling. Also denied urinary complaints. Denied headaches, chest pain, shortness of breath, nausea, vomiting, abdominal pain, diarrhea. In the emergency room, CT brain was unremarkable with EKG showing sinus rhythm and incomplete right bundle-branch block at [address] angiographic neck and chest x-ray were also unremarkable. Laboratory evaluation was remarkable for WBC count 12.5, albumin 5.2 and total protein 8.5. Review of systems: Pertinent positives and negatives as discussed in HPI, a complete review of systems was performed and all other systems are negative. Physical examination: General: non toxic, no distress, appears at stated age, overweight Derm: no unusual rashes/lesions, warm Head: atraumatic, normocephalic, symmetric Eyes: EOMI, no lid lag, anicteric sclera, pupils equal round reactive to light ENT: Nose and ears atraumatic Neck: No cervical lymphadenopathy, trachea midline, supple Mouth: no lip lesion, mucus membranes moist Cardiovascular: S1S2 reg, no murmur, positive dorsalis pedis pulse bilateral, no edema Lungs: CTA bilateral, no rhonchi, no rales, no accessory muscle use Abdominal: soft, nontender to palpation, no guarding Ext: muscle strength 5 out of 5 in all 4 extremities grossly, no gross muscle atrophy, no contractures, Neuro: CN II-XI grossly intact, light touch intact in all these, finger to nose within normal limits Psych: Alert, oriented, appropriate affect Assessment/plan Multiple neurological complaints, low suspicion for TIA versus demyelinating disorder -Neurology consult -PT consulted -Continue with aspirin -Echocardiogram -Neurochecks -Cardiac monitoring Leukocytosis,likely secondary to acute stressor -No signs of active infection at this time Elevated albumin and total protein -Patient reports adequate fluid intake -Follow-up serum protein electrophoresis DVT prophylaxis -Heparin subcu The patient is admitted with an anticipated less than 2 midnight stay for evaluation of neurological complaints. CODE STATUS: Full Code Discussed with: Patient Anticipated discharge date: In a.m. Anticipated discharge place: Home Past Medical History Past Medical History: Coronary Artery Disease (CAD) Additional Past Medical History / Comment(s): endometeriosis, connective tissue disorder. History of Any Multi-Drug Resistant Organisms: MRSA Date of last positivie culture/infection: 07/27/19 MDRO Source:: abdomen Past Surgical History: Bowel Resection, Hysterectomy Additional Past Surgical History / Comment(s): rectal prolapse surgery, Multiple abd surgeries follows up with [facility]. Past Psychological History: No Psychological Hx Reported Smoking Status: Never smoker Past Alcohol Use History: Occasional Past Drug Use History: None Reported - Past Family History Father Family Medical History: Musculoskeletal Disorder Additional Family Medical History / Comment(s): MS Mother Family Medical History: Hyperlipidemia Medications and Allergies Home Medications Medication Instructions Recorded Confirmed Type Dexmethylphenidate HCl 30 mg PO DAILY 02/12/22 02/12/22 History [Dexmethylphenidate HCl ER] Allergies Allergy/AdvReac Type Severity Reaction Status Date / Time No Known Allergies Allergy Verified 02/12/22 17:08 Physical Exam Vitals: Vital Signs Temp Pulse Resp BP Pulse Ox 02/12/22 19:35 71 18 140/95 97 02/12/22 17:15 98.1 F 73 20 121/74 99 02/12/22 17:00 98.2 F 75 16 133/82 98 02/12/22 16:45 98.0 F 72 18 142/99 99 02/12/22 16:23 98.5 F 99 18 137/95 99 Intake and Output 02/12/22 02/12/22 02/12/22 06:59 14:59 22:59 Other: Weight 79.379 kg Results CBC & Chem 7: 02/12/22 16:59 02/12/22 16:59 Labs: Abnormal Lab Results - Last 24 Hours (Table) 02/12/22 02/12/22 Range/Units 16:59 16:59 WBC 12.5 H (3.8-10.6) k/uL Neutrophils # 8.9 H (1.3-7.7) k/uL Total Protein 8.5 H (6.3-8.2) g/dL Albumin 5.2 H (3.5-5.0) g/dL
[2022-02-13] MEDS: HEPARIN SODIUM,PORCINE/PF 5,000 UNIT/0.5 ML SYRINGE SQ SCH ×3 (00:47→10:50)
[2022-02-13] MEDS: SODIUM CHLORIDE 0.9% 1,000 ML IV SCH (04:30)
[2022-02-13 07:59] VITALS: RESP 16
[2022-02-13] MEDS ORDERED: ASPIRIN 325 MG TAB PO SCH (09:00)
--- NOTE | 2022-02-13 09:42 | P.CNNES ---
History of Present Illness Consult date: 02/13/22 Requesting physician: Greg Vincent Reason for Consult: TIA vs other History of Present Illness: This is a 37-year-old right-handed dominant woman who presented to the emergency department on 02/12/2022 for multiple neurological complaints. Patient stated that yesterday she had multiple episode of confusion, generalized body weakness, and has been having worsening of the blurry vision right eye more than the left eye. Yesterday around 8:00 in the morning she had visual changes where she developed kaleidoscope-like visual change right > left. Also yesterday she noticed that she's having word finding difficulties garbled speech lasting for 5-10 minutes then had a similar episode and was confused. She's been having been having intermittent heaviness of her legs for past 5 years. She also has been having intermittent numbness of her face and unsure if both or not. But for the last 1 year she's been noticing numbness of left-sided face as well as arm that is intermittent. Towards the end of January she had an episode where she was she had generalized weakness and her hand clenched over and was week for 5-10 m inutes. She denied any urinary or bowel incontinence, tongue bite, any jerk in of any extremities. Currently patient is back to baseline. She denies any history of seizures. She denies any episodes where she was told she was jerk in of any extremities. She had MRI of the brain that was done at [place] as an outpatient about a month ago and was told was normal and did not see multiple sclerosis according to her. Of note the patient's father and paternal grandmother have MS. also her father was told he had seizures and had similar episodes like her in the past as described above and once she was placed on antiepileptic drugs no further episodes according to the patient's mother was at bedside. Patient denies of any aura prior to the episodes. Patient has a common up appointment with a neurologist next Thursday (with Dr. Roldan). She was seen by unload associate who evaluated the her vision and was told her at was normal. She had a hemoglobin A1c about 4 months ago and was normal. Patient has history of ASD that was closed off at age 6 years. Had multiple surgeries for her urine prolapse. She also was positive for COVID-19 in 2019. Some of the workup during this hospital visit consisted of: Initial white blood cells 12.5 slightly neutrophilic otherwise rest of CBC individuals unremarkable Chemistry panel seem unremarkable uneventful protein is 8.5 and albumin is 5.2. CT of the head is reported as negative on has had computed tomography scan. I personally could not review the computed tomography scan since it's not uploaded into the system and there is only a report. CT angiography of the head and neck was reported as normal. Review of Systems Review of system: The 12 point system was reviewed and apparent positive and negative per HPI. Past Medical History Past Medical History: Coronary Artery Disease (CAD) Additional Past Medical History / Comment(s): endometeriosis, connective tissue disorder. History of Any Multi-Drug Resistant Organisms: MRSA Date of last positivie culture/infection: 07/27/19 MDRO Source:: abdomen Past Surgical History: Bowel Resection, Hysterectomy Additional Past Surgical History / Comment(s): rectal prolapse surgery, Multiple abd surgeries follows up with [facility]. Past Anesthesia/Blood Transfusion Reactions: No Reported Reaction Past Psychological History: No Psychological Hx Reported Smoking Status: Never smoker Past Alcohol Use History: Occasional Past Drug Use History: None Reported - Past Family History Father Family Medical History: Musculoskeletal Disorder Additional Family Medical History / Comment(s): MS Mother Family Medical History: Hyperlipidemia Medications and Allergies Home Medications Medication Instructions Recorded Confirmed Type Dexmethylphenidate HCl 30 mg PO DAILY 02/12/22 02/12/22 History [Dexmethylphenidate HCl ER] Allergies Allergy/AdvReac Type Severity Reaction Status Date / Time No Known Allergies Allergy Verified 02/12/22 17:08 Physical Examination - Vital Signs Vital Signs: Vital Signs Temp Pulse Pulse Resp BP BP Pulse Ox 02/13/22 07:00 98.4 F 74 16 117/72 100 02/13/22 02:09 97.8 F 73 18 103/61 98 02/12/22 22:33 99.0 F 65 16 126/81 98 02/12/22 21:54 98.4 F 76 16 130/92 97 02/12/22 21:00 113/66 02/12/22 20:00 137/97 02/12/22 19:35 71 18 140/95 97 02/12/22 17:15 98.1 F 73 20 121/74 99 02/12/22 17:00 98.2 F 75 16 133/82 98 02/12/22 16:45 98.0 F 72 18 142/99 99 02/12/22 16:23 98.5 F 99 18 137/95 99 Intake and Output 02/12/22 02/13/22 02/13/22 22:59 06:59 14:59 Other: # Voids 1 Weight 79.379 kg GENERAL: The patient is lying in bed and is not in acute distress. CHEST: The heart rate is regular rate rhythm. No murmurs to auscultation. No carotid bruit bilaterally. LUNG: Clear to auscultation bilaterally no wheezing noted throughout. Not labored breathing. ABDOMEN/GI: Bowel sounds present in all 4 quadrants. No tenderness to palpation throughout. NEUROLOGICAL: Higher mental function: The patient is awake, alert, oriented to self, place and time. Patient is following commands. No aphasia and no neglect. Cranial nerves: The pupils are round, equal and reactive to light and accommodation. Visual mooney are full to confrontation throughout. Extraocular movement is intact no nystagmus is noted. Facial sensation is normal to touch throughout. The facial strength is normal throughout. Hearing is normal bilaterally to hand rub. Tongue is midline and moved [id number] without any difficulty. No dysarthria is noted. Shoulder shrug is normal bilaterally. Motor: Gait si normal. The strength is 5 over 5 throughout. Normal tone and bulk. Cerebellum: Normal finger to nose heel to ventura bilaterally. Sensation: Sensation is normal to touch throughout. Reflexes (right/left): Left biceps is 1+. Otherwise. 2+ throughout. Plantars are downgoing bilaterally. Results - Laboratory Findings CBC and BMP: 02/12/22 16:59 02/12/22 16:59 Abnormal Lab Findings: Abnormal Labs 02/12/22 02/12/22 16:59 16:59 WBC 12.5 H Neutrophils # 8.9 H Total Protein 8.5 H Albumin 5.2 H Assessment and Plan Assessment: Multiple neurological complaints of intermittent heaviness of her legs for 5 years, blurred vision right> left, word finding difficulties, confusion, in termittent numbness left face and arm seems for past one year: Unsure exact cause. Rule out multiple sclerosis vs seizure (especially with family history of father of seizure and multiple sclerosis). probable to do multiple sclerosis (patient has family history of multiple sclerosis). Does not seem like stroke or TIA. ASD repair at age 6 years-old Uterine prolapse and had multiple surgeries COVID-19+ in 2020 Family history of multiple sclerosis and seizure (father) Plan: Recommend MRI of the brain, cervical spine, thoracic spine with and without to rule any demylinating disease (patient will like this to be done as outpatient) as well Lumbar puncture with routine csf testing in addition with oligoclonal band. Ordered routine EEG. If negative for seizure or epileptiform discharges recommend prolonged EEG as outpatient. Ordered Vitamin B12, folate and TSH level. She had recent HbA1c as outpatient and was normal. Lipid panel is ordered by the ED is pending In the ED the patient was started on aspirin 325 daily by ED team and Lipitor 80 mg daily at bedtime. I will decrease the Lipitor from 80-40 mg. Continue neuro checks Continue cardiac monitoring PT, OT and DIVISION LEADER are consulted We'll defer the rest of the medical management to the primary team Patient is on subcu heparin 5000 units every 8 hours for DVT prophylaxis next Patient was notified to avoid driving and be cautious to rule out seizures in the meantime to avoid risk for herself and others. I will defer restriction of driving to her outpatient neurologist and span of it. Upon discharge patient to follow-up with her appointment with Dr. Roldan (neurologist) and will defer getting testing as stated above as outpatient and to be coordinated by her neurologist. The plan is discussed with patient and her mother who is at bedside. Thank you for the consultation. César Blue M.D. Neuro-hospitalist Time with Patient: Greater than 30
[2022-02-13 10:40] LABS: HCT 46.6 % (37.2-46.3); HGB 14.1 g/dL (12.0-15.0); MCH 28.3 pg (27.0-32.0); MCHC 30.3 g/dL (32.0-37.0); MCV 93.4 fL (80.0-97.0); Mean Platelet Volume 10.5 fL (9.5-12.2); NRBC Per 100 WBC 0 /100 WBCS (0.0-0.0); Platelet Count 333 X 10*3/uL (140-440); RBC 4.99 X 10*6/uL (4.10-5.20); WBC 10.06 X 10*3/uL (4.50-10.00)
--- NOTE | 2022-02-13 10:42 | CA ---
Transthoracic Echo Report Name: Judith Boyle Age: 37 Gender: F : 1985 Exam Date: 02/13/2022 08:21 Exam Location: [facility] Ht (in): 63 Wt (lb): 175 Ordering Physician: Greg Vincent DO Attending/Referring Phys: Central Supply Technician Supervisor Nicole Benites RDCS Procedure CPT: Indications: Thrombus Cardiac Hx: Hx of asd closure and ablasion. Technical Quality: Good Contrast 1: Total Dose (mL): Contrast 2: Total Dose (mL): MEASUREMENTS (Male / Female) Normal Values 2D ECHO LV Diastolic Diameter PLAX 3.9 cm 4.2 - 5.9 / 3.9 - 5.3 cm LV Systolic Diameter PLAX 2.6 cm IVS Diastolic Thickness 1.0 cm 0.6 - 1.0 / 0.6 - 0.9 cm LVPW Diastolic Thickness 1.1 cm 0.6 - 1.0 / 0.6 - 0.9 cm LV Relative Wall Thickness 0.6 RV Internal Dim ED PLAX 3.3 cm LA Volume 42.5 cm??? 18 - 58 / 22 - 52 cm??? M-MODE MV E Point Septal Separation 1.5 cm DOPPLER AV Peak Velocity 117.2 cm/s AV Peak Gradient 5.5 mmHg MV Area PHT 3.2 cm??? MR Peak Velocity 118.9 cm/s MR Peak Gradient 5.7 mmHg Mitral E Point Velocity 97.9 cm/s Mitral A Point Velocity 51.2 cm/s Mitral E to A Ratio 1.9 MV Deceleration Time 236.4 ms MV E' Velocity 10.0 cm/s Mitral E to MV E' Ratio 9.8 TR Peak Velocity 149.4 cm/s TR Peak Gradient 8.9 mmHg Right Ventricular Systolic Press 13.1 mmHg FINDINGS Left Ventricle Mildly increased septal wall thickness. Mildly increased posterior wall thickness. Left ventricular ejection fraction is estimated at 55-60 %. Left ventricular cavity size normal. Right Ventricle The right ventricle is normal in size and function. Right Atrium The right atrium is normal in size. Left Atrium The left atrium is normal in size. No patent foramen ovale. No evidence for an atrial septal defect. Mitral Valve Structurally normal mitral valve without significant stenosis or prolapse. There is trace mitral regurgitation. Aortic Valve Structurally normal aortic valve without significant sclerosis or stenosis. There is no aortic regurgitation. Tricuspid Valve Structurally normal tricuspid valve without significant stenosis. Pulmonary artery systolic pressure is normal. Trace tricuspid regurgitation. Pulmonic Valve Structurally normal pulmonic valve without significant stenosis. There is no pulmonic regurgitation. Pericardium Normal pericardium without effusion. Aorta Normal aortic root dimension. CONCLUSIONS #1. Normal left ventricular size and function. #2. Normal valvular structure and function Previewed by: Dr. Lake Dalal MD (Electronically Signed) Final Date: 13 February 2022 10:41
[2022-02-13 10:54] LABS: African American GFR (CKD) 126.5 (60.0-200.0); BUN/Creat Ratio 13.29 Ratio (12.00-20.00); Blood Urea Nitrogen 9.3 mg/dL (9.0-27.0); Calcium 8.9 mg/dL (8.7-10.3); Carbon Dioxide 23.4 mmol/L (20.0-27.5); Chloride 104 mmol/L (96-109); Glucose 98 mg/dL (70-110); Non-African American GFR(CKD) 109.1 (60.0-200.0); Potassium 4.8 mmol/L (3.5-5.5); Sodium 137 mmol/L (135-145)
[2022-02-13 10:55] LABS: Chol/HDL Ratio 3.08 Ratio; LDL Cholesterol,Calculated 83.9 mg/dL (0.0-131.0)
--- NOTE | 2022-02-13 14:10 | P.DS ---
Providers Date of admission: 02/12/22 18:05 Expected date of discharge: 02/13/22 Attending physician: Jacqueline Payan DO Consults: 02/12/22 18:06 Consult Physician Urgent Consulting Provider: César Blue Consult Reason/Comments: tia v other Do you want consulting provider notified?: Yes Primary care physician: Bianka Lemus [facility] Course: Discharge Diagnosis: Multiple neurological complaints, concerns of underlying demyelinating disorder such as MS vs seizure (patient has immediate family history of MS and seizures). Neurology recommending patient follow up as scheduled with her neurologist, Dr. Roldan and he is recommending patient to undergo a prolonged EEG, cervical/thoracic/lumbar MRI with and without contrast to rule out any demyelinating disease, as well as a lumbar puncture with routine CSF testing in addition to oligoclonal band. Leukocytosis,likely secondary to acute stressor, improved Elevated albumin and total protein, serum protein electrophoresis normal findings at 7.9. Hospital Course: The patient is a 37-year-old female with a past medical history of ASD status post open heart surgery and closure 6 years old and endometriosis. Patient presented to the emergency department on 02/12/22 with reports of confusion, word finding difficulties, generalized body weakness, and worsening blurry vision of her right eye. Patient reports the symptoms lasted approximately 15 minutes prior to resolving. Patient reports she continues to feel generalized weakness and fatigue but otherwise denies any complaints at this time. Patient recently underwent MRI of brain at [place] in which she reports showed no abnormalities or lesions indicated if of multiple sclerosis per patient, patient does report father and paternal grandfather both with a history of MS. Patient underwent full evaluation in the emergency department. CT brain was unremarkable with EKG showing sinus rhythm and incomplete right bundle-branch block at 80 bpm. CTA head and neck normal showing no acute abnormalities. Chest x-ray also unremarkable. Laboratory evaluation was remarkable for WBC count 12.5, albumin 5.2 and total protein 8.5. Patient was admitted under services with consultation to neurology. She was monitored overnight and remains at baseline normal functioning. Had no further episodes. Patient continues to report generalized weakness/fatigue and generalized heaviness in both of her legs. Echocardiogram was completed revealing normal EF of 55-60% with no structural or valvular abnormalities. Patient underwent EEG in which neurology reports being normal findings. Patient was evaluated by PT/OT, showing no functional limits or impairments. Patient is medically stable for discharge at this time. Neurology recommending patient follow up as scheduled with her neurologist, Dr. Roldan and he is recommending patient to undergo a prolonged EEG, cervical/tho racic/lumbar MRI with and without contrast to rule out any demyelinating disease, as well as a lumbar puncture with routine CSF testing in addition to oligoclonal band. Physical examination: General: non toxic, no distress, appears at stated age Derm: warm, dry Head: atraumatic, normocephalic, symmetric Eyes: EOMI, no lid lag, anicteric sclera Mouth: no lip lesion, mucus membranes moist Cardiovascular: S1S2 reg, no murmur, positive posterior tibial pulses bilaterally Lungs: CTA bilateral, no rhonchi, no rales , no accessory muscle use Abdominal: soft, nontender to palpation, no guarding, no appreciable organomegaly Ext: no gross muscle atrophy, no edema, no contractures Neuro: CN II-XI grossly intact, no focal neuro deficits Psych: Alert, oriented, appropriate affect A total of 35 minutes of time were spent preparing this complex discharge summary. Pt was discharged on 02/13/22 at 1:51 PM. I reviewed the documentation as provided by the AR above, who is the original author of this note. I agree with the documented assessment and plan, with the following changes: none Patient Condition at Discharge: Stable Plan - Discharge Summary New Discharge Prescriptions: New Atorvastatin [Lipitor] 40 mg PO HS 30 Days #30 tab Continue Dexmethylphenidate HCl [Dexmethylphenidate HCl ER] 30 mg PO DAILY Discharge Medication List Dexmethylphenidate HCl [Dexmethylphenidate HCl ER] 30 mg PO DAILY 02/12/22 [History] Atorvastatin [Lipitor] 40 mg PO HS 30 Days #30 tab 02/13/22 [Rx] Follow up Appointment(s)/Referral(s): Bianka Bernal III, MD [Primary Care Provider] - 1-2 days Joe Roldan DO [STAFF PHYSICIAN] - 1 Week Activity/Diet/Wound Care/Special Instructions: Activity: As tolerated. Take breaks as needed. Diet: Heart healthy and carb consistent diet. Avoid salts, or foods with hidden salts such as canned or boxed foods and frozen dinners. Extra salt makes your heart work harder and traps the fluid in your body for longer. Special Instructions: Take all of your medications as directed and remember to keep all of your d octor's appointments and follow-up as needed. You will need to follow up with Dr. Roldan, neurology for recommended prolonged EEG, cervical/thoracic/lumbar MRI with and without contrast to rule out any demyelinating disease, neurology also recommended lumbar puncture with routine CSF testing in addition to oligoclonal band. Thank you for allowing us to participate in your care, it was truly a pleasure having you for our patient!!! Discharge Disposition: HOME SELF-CARE
[2022-02-13 14:17] VITALS: BP 132/79; PULSE 78; TEMP 98.1
--- NOTE | 2022-02-13 16:04 | EEG ---
ELECTROENCEPHALOGRAM REPORT DATE OF SERVICE: 02/13/2022. CLINICAL HISTORY: This is a 37-year-old woman with episode of confusion. The video EEG is obtained to evaluate for seizure epileptiform activity. RELEVANT MEDICATION: The patient is not on any antiepileptic drugs. EEG TYPE: A routine 21-channel EEG is performed with video using the 10/20 electrode placement system. DESCRIPTION: Only wakefulness is obtained. During awake state the posterior-dominant rhythm consists of low to moderate voltage of 11 to 11.5 hertz activity that is well modulated, well sustained. There is no physiological sleep architecture seen. There is no focal slowing. Interictal and ictal is none. ACTIVATION PROCEDURE: Photic stimulation did evoke a posterior driving response at multiple flash frequencies. There is no abnormality during the photic stimulation. Hyperventilation was not performed. CLINICAL INTERPRETATION: This is a normal routine EEG. There is no focal slowing, epileptiform discharges or seizure on the EEG. Clinical correlation is recommended. FANTASMA / TONIO: [id number] / [id number]
[2022-02-13 16:22] LABS: Albumin 4.79 g/dL (3.80-4.90); Gamma Globulin 0.92 g/dL (0.70-1.50)
[2022-02-13] MEDS ORDERED: ATORVASTATIN 40 MG TAB PO SCH (21:00)
== END 2022-02-13 14:21 | disposition home or self-care (01) ==
LOC: EC 16:14 → 6NMEDSUR 18:05
PROVIDERS: ADMIT Internal Medicine; ATTEND Internal Medicine
DX: H53.8 Other visual disturbances (principal); R47.01 Aphasia; R41.0 Disorientation, unspecified; R20.0 Anesthesia of skin; R53.1 Weakness; D72.829 Elevated white blood cell count, unspecified; I45.10 Unspecified right bundle-branch block; I25.10 Atherosclerotic heart disease of native coronary artery without angina pectoris; R77.0 Abnormality of albumin; R77.9 Abnormality of plasma protein, unspecified; N80.9 Endometriosis, unspecified; Z79.899 Other long term (current) drug therapy; Z86.16 Personal history of COVID-19; Z87.74 Personal history of (corrected) congenital malformations of heart and circulatory system; Z90.710 Acquired absence of both cervix and uterus; Z87.39 Personal history of other diseases of the musculoskeletal system and connective tissue; Z86.14 Personal history of Methicillin resistant Staphylococcus aureus infection; Z90.49 Acquired absence of other specified parts of digestive tract; Z98.890 Other specified postprocedural states; Z82.0 Family history of epilepsy and other diseases of the nervous system; Z83.49 Family history of other endocrine, nutritional and metabolic diseases
CPT/HCPCS: 96372; 99285; 36415; 95816; 93005; 93306; 97161; 97165; 92523; 80061; 80053; 80048; 84443; 82607; 82746; 84484; 85025; 85027; 85610; 85730; 84165; 71046; 70496; 70450; 70498; G0378 ×2; Q9967; J1644

== ENCOUNTER → 2022-03-11 | Day surgery (SDC) | payer BC ==
[2022-03-05 15:12] VITALS: BMI 30.9
[~2022-03-11] MED LIST: IV FLUID CONTINUATION 1,000 ML IV ONE; LACTATED RINGERS 1,000 ML IV SCH; LIDOCAINE 2% INJ 20 MG/ML (2 ML VIAL) ONE; MIDAZOLAM 2 MG/2 ML VIAL ONE; fentaNYL (PF) 50 MCG/ML 2 ML AMP ONE
[2022-03-11 11:59] VITALS: TEMP 98.9
--- NOTE | 2022-03-11 12:45 | P.PCN ---
Date of Procedure: 03/11/22 Preoperative Diagnosis: Neurologic changes consistent with multiple sclerosis Postoperative Diagnosis: Same as above Procedure(s) Performed: Lumbar puncture in the left lateral decubitus position with opening and closing pressures Anesthesia: MAC (Monitored IV conscious sedation with Versed and fentanyl) Surgeon: Becky Kern Condition: stable Disposition: PACU Description of Procedure: The patient assumed the left lateral decubitus position. Skin was prepped with ChloraPrep and draped in a sterile manner. Lidocaine 1% was used to numb the skin up at the L4 5 level in the midline approach. I then used 22-gauge 3-1/2 inch Quincke spinal needle to get axis into the intrathecal space. Positive CSF, negative paresthesia, negative blood. Opening pressure was very low and and unmeasurable(lower than 1 cm of water). 1 mL of the CSF fluid was placed in each test tube , a total of 4 tubes were collected. Closing pressure was also very low and and unmeasurable. Patient tolerated procedure well and was taken in stable condition to PACU.
[2022-03-11 13:01] VITALS: PULSE 63
[2022-03-11 13:22] VITALS: BP 116/77; RESP 17
[2022-03-11 17:51] LABS: Glucose,CSF 59 mg/dL (40-70); Total Protein,CSF 30 mg/dL (12-60)
[2022-03-11 17:59] LABS: Appearance,CSF Clear; CSF Tube Number 4; CSF Tube Volume 2; Nucleated Cells, CSF 1 u/L (0-5)
[2022-03-11 18:00] LABS: Red Blood Cell,CSF 215 u/L (0-10)
[2022-03-11 19:35] LABS: Red Blood Cell, CSF Crenated 0 %; Red Blood Cell, CSF Fresh 100 %
== END ==
LOC: ORPAIN 11:45
PROVIDERS: ATTEND Anesthesiology
DX: R29.898 Other symptoms and signs involving the musculoskeletal system (principal); R20.0 Anesthesia of skin; H53.8 Other visual disturbances; F80.89 Other developmental disorders of speech and language; Z79.899 Other long term (current) drug therapy; Z90.49 Acquired absence of other specified parts of digestive tract; Z87.891 Personal history of nicotine dependence; Z82.69 Family history of other diseases of the musculoskeletal system and connective tissue; Z84.89 Family history of other specified conditions
CPT/HCPCS: 88108; 84157; 82945; 83916; 82164; 89050; 62270; J2250; J2001 ×2; J3010; 82040; 82042; 82784

== ENCOUNTER 2022-03-12 11:09 | Emergency (ER) | payer BC ==
[2022-03-12] MEDS ORDERED: SODIUM CHLORIDE 0.9% 1,000 ML IV STA (12:19)
[2022-03-12] MEDS ORDERED: METOCLOPRAMIDE 5 MG/ML 2 ML VIAL IVP STA (12:19)
[2022-03-12] MEDS ORDERED: diphenhydrAMINE 50 MG/ML 1 ML VIAL IVP STA (12:20)
--- NOTE | 2022-03-12 12:22 | ED ---
General Adult HPI - General Chief complaint: Headache Stated complaint: Lumbar Puncture 7//Complications Time Seen by Provider: 03/12/22 11:58 Source: patient, RN notes reviewed Mode of arrival: ambulatory Limitations: no limitations - History of Present Illness Initial comments: Patient is a pleasant 37-year-old female presenting to the emergency Department with headache. Patient had questionable TIA symptoms a couple months ago and has been seen neurologists for this. Lumbar puncture was done yesterday. Following this patient had discomfort including headache. Headache is moderate to severe lying down however is significantly increased with upright position. No fevers. No weakness or confusion. Patient did call her doctor's office with advised her to come to the emergency department. - Related Data Home Medications Medication Instructions Recorded Confirmed Dexmethylphenidate HCl 30 mg PO DAILY 02/12/22 03/12/22 [Dexmethylphenidate HCl ER] Atorvastatin [Lipitor] 40 mg PO HS 03/12/22 03/12/22 Allergies Allergy/AdvReac Type Severity Reaction Status Date / Time No Known Allergies Allergy Verified 03/12/22 13:02 Review of Systems ROS Statement: Those systems with pertinent positive or pertinent negative responses have been documented in the HPI. ROS Other: All systems not noted in ROS Statement are negative. Constitutional: Denies: fever Eyes: Denies: eye pain ENT: Denies: ear pain Respiratory: Denies: cough Cardiovascular: Denies: chest pain Endocrine: Denies: fatigue Gastrointestinal: Denies: abdominal pain Genitourinary: Denies: dysuria Musculoskeletal: Denies: arthralgia Skin: Denies: rash Neurological: Reports: as per HPI, headache. Denies: weakness, confusion Past Medical History Past Medical History: Coronary Artery Disease (CAD) Additional Past Medical History / Comment(s): connective tissue disorder diagnosed at [facility]-no further follow up done History of Any Multi-Drug Resistant Organisms: MRSA Date of last positivie culture/infection: 07/27/19 MDRO Source:: abdomen Past Surgical History: Bowel Resection, Hysterectomy Additional Past Surgical History / Comment(s): rectal prolapse surgery, Multiple abd surgeries follows up with [facility] due to connective tissue disorder. 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 Past Anesthesia/Blood Transfusion Reactions: No Reported Reaction Past Psychological History: No Psychological Hx Reported Smoking Status: Never smoker Past Alcohol Use History: Occasional Past Drug Use History: None Reported - Past Family History Father Family Medical History: Musculoskeletal Disorder, Seizure Disorder Additional Family Medical History / Comment(s): MS Mother Family Medical History: Hyperlipidemia General Exam Limitations: no limitations General appearance: alert, in no apparent distress Head exam: Present: normocephalic Eye exam: Present: normal appearance, PERRL, EOMI ENT exam: Present: normal oropharynx Neck exam: Present: normal inspection Respiratory exam: Present: normal lung sounds bilaterally Cardiovascular Exam: Present: regular rate, normal rhythm GI/Abdominal exam: Present: soft. Absent: tenderness Extremities exam: Present: normal inspection Neurological exam: Present: alert, oriented X3, CN II-XII intact. Absent: motor sensory deficit Expanded Neurological exam: Present: protecting the airway Speech: Present: fluid speech Cranial nerves: EOM's Intact: Normal Motor strength exam: RUE: 5, LUE: 5, RLE: 5, LLE: 5 Eye Response: (4) open spontaneously Motor Response: (6) obeys commands Verbal Response: (5) oriented Psychiatric exam: Present: normal affect, normal mood Skin exam: Present: normal color Course Vital Signs 03/12/22 03/12/22 11:46 13:00 Temperature 98.5 F 98.4 F Pulse Rate 82 66 Respiratory 16 20 Rate Blood Pressure 155/92 129/80 O2 Sat by Pulse 100 100 Oximetry - Reevaluation(s) Reevaluation #1: 03/12/22 12:30 I did speak with Dr. vera and as well as Dr. Hernandez. Dr. Hernandez will evaluate Medical Decision Making - Medical Decision Making Patient reevaluated and improved. Patient states no discomfort except for with position changes at this time. Patient refuses further medication at this time. Patient was seen by anesthesiology and provided phone number for scheduling for blood patch if patient has continued symptoms. Patient does request discharge Disposition Clinical Impression: Spinal headache Disposition: HOME SELF-CARE Condition: Stable Instructions (If sedation given, give patient instructions): Acute Headache (ED) Additional Instructions: Please follow-up with neurology as directed. Please follow-up with anesthesiology for continued symptoms, with the number they did provide 2. Return for fever, weakness, increased pain, worsening or change in symptoms or any other concerns. Is patient prescribed a controlled substance at d/c from ED?: No Referrals: Bianka Bernal III, MD [Primary Care Provider] - 1-2 days Time of Disposition: 14:21
[2022-03-12] MEDS ORDERED: CAFFEINE-SODIUM BENZOATE 500 MG in SODIUM CHLORIDE 0.9% 1,000 ML IVPB ONE (12:26)
--- NOTE | 2022-03-12 14:18 | P.PN ---
Progress Note - Text Progress Note Date: 03/12/22 CTSP regarding possible spinal headache. +WHITNEY 6/10 supine and 10/10 erect. +photophobia +cervical pain. Paresthesias bilateral hands. Denies fever. LP yesterday and WHITNEY began after procedure. Gen: NAD, Lying flat Resp: Non labored respirations Abd: Non distended A: 1. Possible postdural puncture headache. Consider headache, migraine. P: 1. Had discussion with the patient regarding treatment options if it is a spinal headache. Most resolve spontaneously within 1 week. Conservative treatment of fluids and caffiene. Already started in ER. Blood patch has low risk, but still has the potential for complication. It will cause moderate back ache for about 2 weeks. Patient understands. Patient agreed to conservative treatment and see if headache improves overnight. If not improved, patient is to call the [facility] preoperative main desk tomorrow AM (7- 730am). Patient was given number.
[2022-03-12 14:46] VITALS: BP 128/77; PULSE 65; RESP 18; TEMP 98.1
== END 2022-03-12 14:45 | disposition home or self-care (01) ==
LOC: EC 11:09
DX: R51.9 Headache, unspecified (principal)
CPT/HCPCS: 99283; 96365; 96375; J1200; J2765

== ENCOUNTER 2022-03-13 10:39 | Day surgery (SDC) | payer BC ==
[~2022-03-13 10:39] MED LIST changes: -IV FLUID CONTINUATION 1,000 ML IV ONE; -LIDOCAINE 2% INJ 20 MG/ML (2 ML VIAL) ONE; -MIDAZOLAM 2 MG/2 ML VIAL ONE; -fentaNYL (PF) 50 MCG/ML 2 ML AMP ONE
[2022-03-13 10:57] VITALS: RESP 16; TEMP 98.4
[2022-03-13] MEDS ORDERED: fentaNYL (PF) 50 MCG/ML 2 ML AMP ONE (11:24)
[2022-03-13] MEDS ORDERED: MIDAZOLAM 2 MG/2 ML VIAL ONE (11:24)
--- NOTE | 2022-03-13 11:42 | P.PCN ---
Date of Procedure: 03/13/22 Description of Procedure: Procedure: 1. Lumbar epidural autologous blood patch PREOPERATIVE DIAGNOSIS: Post dural puncture headache POSTOPERATIVE DIAGNOSIS: Post dural puncture headache SURGEON: Joshua Perry ANESTHESIA: Local with 1% lidocaine, and IV sedation : Midazolam 2 mg, and fentanyl 100 g EBL: 25 ml Specimen removed: None PROCEDURE INDICATION: Patient had a history of previous lumbar puncture, patient developed post dural puncture headache. Patient tried conservative therapy, not responded well came here for epidural autologous blood patch. PROCEDURE DESCRIPTION: The patient was seen and identified. Risks, benefits, complications, and alternatives were discussed with the patient. The patient agreed to proceed with the procedure and signed the consent, and vital signs were stable. Patient was taken to the procedure area, and time out was completed. The patient was placed in sitting position on procedure. . The lumbosacral area was prepped and draped in the usual sterile fashion. Critical pause was taken. Vital signs were closely monitored during the procedure. Posterior superior iliac crest landmarks was identified . The midline lumbar space also identified. Approximately at the level of L4-L5 interspinous space, skin and deeper tissues were localized with 4 mL of 1% lidocaine. Using a 20 gauge 3.5 Tuohy needle entered into the epidural space with [id number] technique in 1 attempt. After negative aspiration for blood, body fluids, and CSF , 21 mL of autologous blood injected after negative aspiration. Needle was withdrawn intact, skin was cleansed, and bandages were applied. Patient tolerated the procedure well. 4 mL of blood and discarded. Under sterile conditions, patient area pain with ChloraPrep, and draw 25 mL of autologous blood from the patient, immediately injected the same amount into the epidural space. Preprocedure patient headache: 10 out of 10 Postprocedure patient headache: 0 Out of 10. COMPLICATIONS: None. DISPOSITION / PLANS: The patient was placed in a supine position and transferred to the recovery area in a stable condition for observation. Patient was discharged from the recovery room after meeting discharge criteria. Home discharge instructions given to the patient by the staff. The patient was reexamined prior to discharge.
[2022-03-13] MEDS ORDERED: IV FLUID CONTINUATION 1,000 ML IV ONE ×2 (11:45)
[2022-03-13 12:04] VITALS: PULSE 60
[2022-03-13 12:18] VITALS: BP 126/76
== END 2022-03-13 13:05 | disposition home or self-care (01) ==
LOC: ORPAIN 10:39
DX: G97.1 Other reaction to spinal and lumbar puncture (principal); Z79.899 Other long term (current) drug therapy; Z82.69 Family history of other diseases of the musculoskeletal system and connective tissue
CPT/HCPCS: 62273; J2250; J3010; 99152

== ENCOUNTER → 2022-03-17 | Outpatient (CLI) | payer BC ==
[2022-03-17 14:49] LABS: Creatine Kinase 70 U/L (26-186); Rheumatoid Factor, Qnt <10 IU/mL (0-15)
[2022-03-17 21:45] LABS: Anti-DNA, DS unit <1.0 IU/mL; Cyclic Citrull Pep IgG Unit <0.5 U/mL; Cyclic Citrullinated Pep IgG NEGATIVE (NEGATIVE); DNA Double-Stranded NEGATIVE (NEGATIVE)
--- NOTE | 2022-03-18 07:35 | MR ---
EXAMINATION TYPE: MR brain/cspine wo/w DATE OF EXAM: 03/17/2022 COMPARISON: CT brain February 12, 2022 HISTORY: Numbness in face and extremities. Difficulty speaking. Blurred vision. TECHNIQUE: Multiplanar, multisequence images of the brain and brainstem and cervical spine are all performed wit hout and with IV contrast, utilizing 8 mL intravenous Gadavist . FINDINGS: Brain: Diffusion weighted images demonstrate no evidence of a recent infarct or other diffusion abnormality. There is no extra-axial fluid collection or significant white matter signal abnormality. The ventr icular system and cisternal spaces are normal in size and appearance. The brain volume is age approp riate. Midline structures demonstrate normal morphology. The craniocervical junction appears within normal limits. Post contrast images demonstrate no abnormal enhancement. The dural venous sinuses appear pa tent. The visualized sinuses are clear and the globes are intact. IMPRESSION: No significant white matter changes. No abnormal enhancement. Unremarkable study Cervical spine: FINDINGS: Sagittal images of the cervical spine show the craniocervical junction to appear within nor mal limits. The cervical and upper thoracic spinal cord is normal in caliber and signal. Vertebral alignment is straightened. . There is grade 1 retrolisthesis C5 on C6 and C6 on C7. The vertebral bod y and intravertebral disk heights are normal. Posterior disc herniation C5-6 level effacing the ante rior thecal sac. The bone marrow signal intensity is within normal limits. No abnormal postcontrast e nhancement. Axial images show C2-C3 through C4-C5 levels appear within normal limits. Axial images at C5-C6 levels show broad-based right paracentral disc protrusion effacing the anterior thecal sac up to ventral surface of spinal cord, patent bilateral neural foramina. Axial images at C6-C7 and C7-T1 levels appear within normal limits. IMPRESSION: Spondylolisthesis and degenerative change C5-C6 level. No abnormal cord signal or enhance ment.
[2022-03-18 12:05] LABS: C-ANCA <1:20 Titer (<1:20)
[2022-03-18 13:42] LABS: APTT 41 Sec(s) (<43); DRVVT 1:1 Mix 40 Sec(s) (<44); Dilute Russell Viper Venom 45 Sec(s) (<44)
== END | disposition home or self-care (01) ==
LOC: RADMRIMAIN 08:43
PROVIDERS: ATTEND Family Medicine
DX: H53.8 Other visual disturbances (principal); R29.898 Other symptoms and signs involving the musculoskeletal system; R20.0 Anesthesia of skin; F80.89 Other developmental disorders of speech and language
CPT/HCPCS: 86255; 86162; 85652; 82550; 85730; 86140; 86431; 85613; 86038; 86225; 86235; 86200; 70553; 72156; A9585

== ENCOUNTER → 2022-03-29 | Outpatient (CLI) | payer BC ==
--- NOTE | 2022-03-29 18:54 | MR ---
EXAMINATION TYPE: MR thoracic spine wo/w con DATE OF EXAM: 03/29/2022 9:09 AM COMPARISON: No priors. INDICATION: Patient age:Female; 37 years old; Reason for study: H53.8 Visual disturbances; TECHNIQUE: Multi planar, multi sequence imaging was performed utilizing: T1-weighted and T2-weighted of the thoracic spine. The patient was given 8 mL Gadavist. FINDINGS: Mild motion artifact is present throughout the exam. The thoracic vertebral bodies have preserved hei ghts and alignment. Thoracic spinal cord appears unremarkable without abnormal postcontrast enhanceme nt. No evidence of demyelination. Intervertebral discs demonstrate normal signal intensity. Scattere d Modic endplate changes are seen throughout the vertebral bodies with scattered Schmorl's nodes. Mil d multilevel disc degeneration changes are present. No abnormal postcontrast enhancement identified. T4-T5 left subarticular /foraminal disc protrusion which abuts the spinal cord. There is mild left ne ural foraminal stenosis at this level. The remainder of this canal and neural foramen appear patent. The the IMPRESSION: 1. T4-T5 left subarticular/foraminal disc herniation which abuts the spinal cord. 2. No abnormal postcontrast enhancement or evidence of demyelination.
== END | disposition home or self-care (01) ==
LOC: RADMRIMAIN 07:56
PROVIDERS: ATTEND Student in an Organized Health Care Education/Training Program
DX: H53.8 Other visual disturbances (principal); R29.898 Other symptoms and signs involving the musculoskeletal system; R20.0 Anesthesia of skin; F80.89 Other developmental disorders of speech and language
CPT/HCPCS: 72157; A9585

== ENCOUNTER → 2024-08-15 | Outpatient (CLI) | payer BC ==
--- NOTE | 2024-08-22 10:19 | MM ---
Reason for Exam: Screening (asymptomatic). Last mammogram was performed 6 year(s) and 6 month(s) ago. Patient History: Menarche at age 10. First Full-Term at age 20. Hysterectomy at age 24. Patient has history of breast feeding. Patient used Hormonal Contraceptives for 2 years. Maternal aunt had breast cancer, age 50. Risk Values: Britni 5 year model risk: 0.5%. NCI Lifetime model risk: 9.0%. Prior Study Comparison: 02/24/2018 Bilateral Screening Mammogram, [facility]. Tissue Density: There are scattered areas of fibroglandular density. Findings: Analyzed By CAD. Right breast: There is no suspicious group of microcalcifications or new suspicious mass. Left breast: There is no suspicious group of microcalcifications or new suspicious mass. Overall Assessment: Negative, BI-RAD 1 Management: Screening Mammogram of both breasts in [address] [facility] will attempt to contact patient to return for supplemental views and ultrasound if indicated. Patient should continue monthly self-breast exams. A clinical breast exam by your physician is recommended on an annual basis. This exam should not preclude additional follow-up of suspicious palpable abnormalities. Note on Britni scores and lifetime risk: 1. A Britni score greater than 3% is considered moderate risk. If this is the case, consider specialist referral to assess eligibility for a risk reducing agent. 2. If overall lifetime risk for the development of breast cancer is 20% or higher, the patient may qualify for future screening with alternating mammogram and breast MRI. [facility], , 08/22/2024 10:15 AM. Electronically signed and approved by: Car Ojeda DO
== END | disposition home or self-care (01) ==
LOC: RADMAMWWP 15:47
PROVIDERS: ATTEND Family Medicine
DX: Z12.31 Encounter for screening mammogram for malignant neoplasm of breast (principal); R92.323 Mammographic fibroglandular density, bilateral breasts; Z80.3 Family history of malignant neoplasm of breast; Z92.0 Personal history of contraception
CPT/HCPCS: 77063; 77067

== ENCOUNTER → 2025-03-08 | Outpatient (CLI) | payer BC | END | disposition home or self-care (01) | LOC: LABWHC1 09:20 | PROVIDERS: ATTEND Nurse Practitioner Family | DX: M35.9 Systemic involvement of connective tissue, unspecified (principal) | CPT/HCPCS: 36415; 85652; 86038; 86140 ==